=== PATIENT | female | born 1955 | race Caucasian/White ===

== ENCOUNTER 2020-06-23 22:16 | Emergency (ER) | payer MEDICARE, SELFPAY ==
--- NOTE | ~2020-06-23 | XR_ITS ---
EXAMINATION: XR chest 2V EXAM DATE: 06/23/2020 23:11 INDICATION: Dizziness, nausea and vomiting. Age-indeterminate left internal capsular lacunar infarcti on. TECHNIQUE: Frontal and lateral projections of the chest obtained and reviewed. There is no prior christina dy for comparison. FINDINGS: The lungs are clear. There are no pleural effusions. The cardiomediastinal silhouette is within normal limits. There is no pneumothorax suspected. The bones and soft tissues are unremarkab le. IMPRESSION: No acute cardiopulmonary findings. Reviewed, dictated and finalized at location G.
--- NOTE | ~2020-06-23 | CT_ITS ---
EXAMINATION: CT brain wo [facility] EXAM DATE: 06/23/2020 23:03 INDICATION: Dizziness, nausea and vomiting. TECHNIQUE: Spiral CT of the head was performed without contrast. Axial, coronal and sagittal images were reviewed. The dose-length product (DLP) for this examination was 605.33 mGy-cm. The exposure w as tailored according to patient size, and iterative reconstruction (ASIR) was used as additional dos e reduction technique. There is no prior study for comparison. FINDINGS: There is somewhat ill-defined hypodense region in the left internal capsular anterior limb, appearance suspicious for acute or subacute infarction (greater than 6 hours in age). There is no acute intraparenchymal hemorrhage. No evidence of intraparenchymal brain mass lesion. T here is no mass effect or midline shift. The ventricles are normal in size. There are no extra-axia l collections. There are no acute calvarial fractures. The orbits are unremarkable. Soft tissue is unremarkable. The visualized sinuses and mastoid air cells are well aerated. IMPRESSION: Left internal capsular lacunar infarction, could be acute or subacute. Reviewed, dictated and finalized at location G. IMPRESSION: Left internal capsular lacunar infarction, could be acute or subacu te.
[2020-06-23 22:24] VITALS: BP 142/82; PULSE 99; RESP 16; TEMP 36.6; O2SAT 100
--- NOTE | 2020-06-23 22:37 | ECG_ITS ---
Measurements Intervals [place]le Rate: 98 P: 15 MO: 186 QRS: -27 QRSD: 105 T: 21 QT: 379 QTc: 486 Interpretive Statements SINUS RHYTHM ANTERIOR INFARCT, AGE INDETERMINATE CONSIDER INFERIOR INFARCT, AGE INDETERMINATE ABNORMAL ECG Electronically Signed On 06-24-2020 6:39:17 CDT by Cb Jensen D.O.
--- NOTE | 2020-06-23 22:38 | ED.DIZZY ---
HPI - Dizziness General Chief Complaint: Dizziness Stated Complaint: vertigo, n/v Time Seen by Provider: 06/23/20 22:28 Source: patient, family, RN notes reviewed and old records reviewed History of Present Illness HPI Narrative: 65-year-old female presents to emergency department for constant dizziness that began around 7 PM today. Patient states she has had this in the past before, about 10 years ago. Patient states she took Dramamine and Zofran to help with her symptoms. She states moving her head to the right makes it worse. She does report nausea and vomiting. No chest pain or shortness of breath. Related Data Home Medications Medication Instructions Recorded Confirmed ascorbate calcium (vitamin C) 500 500 mg PO DAILY 11/10/19 01/12/20 mg tablet aspirin 81 mg tablet,delayed 81 mg PO DAILY 11/10/19 01/12/20 release coenzyme Q10 100 mg capsule 200 mg PO DAILY cap 11/10/19 01/12/20 cranberry extract 200 mg capsule 200 mg PO DAILY 11/10/19 01/12/20 fluticasone propionate 50 1 spray NASAL DAILY PRN 11/10/19 01/12/20 mcg/actuation nasal spray,suspension omeprazole 40 mg capsule,delayed 40 mg PO DAILY 11/10/19 01/12/20 release lactobacillus combination no.8 3 3,000 mmu cells PO DAILY 12/15/19 01/12/20 billion cell capsule omega-3 fatty acids 1,000 mg 1,000 mg PO DAILY 12/15/19 01/12/20 capsule multivit with 0.5 tablet PO BID tablet 01/12/20 01/12/20 scexembm-chuw-XV-lutein 8 mg iron-400 mcg-300 mcg tablet psyllium seed (sugar) oral powder 0.5 tsp PO DAILY g 01/12/20 01/12/20 Allergies Allergy/AdvReac Type Severity Reaction Status Date / Time nalbuphine Allergy Unknown LOWERS B/P Verified 02/09/18 10:03 codeine Allergy Vomiting Verified 11/10/19 08:19 Sulfa (Sulfonamide AdvReac Unknown MIGRAINES, Verified 02/09/18 10:03 Antibiotics) VOMITING Review of Systems Review of Systems: Narrative: CONSTITUTIONAL: Denies fever, chills, or sweats. Positive Palmer-Hallpike to right side EYES: Denies visual changes, redness, or discharge. ENT: Denies rhinorrhea, congestion, sore throat, or otalgia. CARDIOVASCULAR: Denies chest pain, palpitations, or edema. RESPIRATORY: Denies cough or dyspnea. GASTROINTESTINAL: Reports nausea and vomiting, no diarrhea. GENITOURINARY: Denies dysuria or hematuria. SKIN: Denies rash or itching. MUSCULOSKELETAL: Denies back pain, joint pain, or myalgia. NEUROLOGIC: Denies headache, numbness or weakness. Reports dizziness PSYCHIATRIC: Denies anxiety or depression. All systems reviewed & are unremarkable except as noted in HPI and below (ROS) [facility] Past Medical History Medical History Anxiety GERD (gastroesophageal reflux disease) High cholesterol HTN (hypertension) Surgical History Surgical History H/O section 1984 History of hysterectomy 1992 History of tonsillectomy Family History Family History Mother Heart disease Diabetes mellitus Father Aortic aneurysm Grandparent Uremia Cerebrovascular accident Emphysema of lung Sibling Leukemia Social History Social History Smoking status: Never smoker Alcohol intake: former Exam Narrative: Exam Narrative: Order exam Course Course Emergency Course: 2330 -performed Jennifer maneuver 11:50PM -reevaluated patient, symptoms have improved. Patient very likely has BPPV. Low suspicion for stroke or TIA. Counseled patient to follow-up with her primary care physician within 1 week. Return to emergency department if symptoms persist worsen or other concerns. Can do Jennifer maneuver at home. Vital Signs Vital signs: Vital Signs Temperature 36.6 C 06/23/20 22:24 Pulse Rate 99 06/23/20 22:24 Respiratory Rate 16 06/23
[2020-06-23 22:41] LABS: Basophils Percent Auto 0.4 % (0.2-1.2); Eosinophils Absolute Auto 0.2 K/mm3 (0-0.3); Eosinophils Percent Auto 1.8 % (0-4.4); Hematocrit 45.6 % (37.0-47.0); Hemoglobin 15.6 g/dL (12.0-15.0); Immature Granulocyte Absolute 0.05 K/mm3 (0.00-0.031); Immature Granulocyte Percent A 0.6 % (0-0.5); Lymphocytes Percent Auto 15.3 % (18.3-44.2); Mean Corpuscular HGB Conc 34.2 g/dl (32-36); Mean Corpuscular Hemoglobin 30.1 pg (26-34); Mean Corpuscular Volume 87.9 fl (80-100); Mean Platelet Volume 8.6 fl (7.4-10.4); Monocytes Absolute Auto 0.7 K/mm3 (0.1-0.6); Monocytes Percent Auto 7.9 % (2.6-8.5); Neutrophils Absolute Auto 6.3 K/mm3 (1.3-6.7); Platelet Count Result 214 k/mm3 (150-375); Red Blood Count 5.19 M/mm3 (4.2-5.4); Red Cell Distribution Width 13.5 % (11.5-14.5); White Blood Count 8.5 K/mm3 (4.5-10.0)
[2020-06-23] MEDS: diphenhydrAMINE HCl INJ 50 MG/ML VIAL 25 MG IV PUSH (22:45)
[2020-06-23] MEDS: PROCHLORPERAZINE EDISYLATE 10 MG/2 ML VIAL IV PUSH (22:45)
[2020-06-23 22:52] LABS: Alanine Aminotransferase 39 U/L (4-35); Albumin Level 4.9 g/dL (3.5-5.1); Alkaline Phosphatase 120 U/L (38-126); Anion Gap 7 mmol/L (8-16); Aspartate Amino Transferase 42 U/L (14-36); Bilirubin,Total 0.7 mg/dL (0.2-1.3); Blood Urea Nitrogen 12 mg/dL (7-17); Calcium 10.2 mg/dL (8.4-10.2); Carbon Dioxide 31 mmol/L (22-30); Chloride 99 mmol/L (98-107); Estimated CRCL calculation 76 ml/min; Estimated Glomerular Filt Rate > 60; Glucose 149 mg/dL (65-105); Lipase 20 U/L (23-300); Potassium 3.6 mmol/L (3.4-5.0); Sodium 137 mmol/L (137-145)
[2020-06-23 23:03] LABS: Magnesium 1.9 mg/dL (1.6-2.3)
[2020-06-23 23:16] LABS: Troponin I < 0.012 ng/mL (0.000-0.034)
[2020-06-23] MEDS: ONDANSETRON INJ 4 MG/2 ML VIAL IV PUSH (23:41)
[2020-06-24 00:45] VITALS: BP 146/90; PULSE 105; RESP 16; O2SAT 99
== END 2020-06-24 00:45 | disposition home or self-care (01) ==
PROVIDERS: Emergency Medicine; Emergency Provider Emergency Medicine; PCP Internal Medicine
DX: H81.11 Benign paroxysmal vertigo, right ear (principal); F41.9 Anxiety disorder, unspecified; K21.9 Gastro-esophageal reflux disease without esophagitis; E78.00 Pure hypercholesterolemia, unspecified; I10 Essential (primary) hypertension; R94.31 Abnormal electrocardiogram [ECG] [EKG]; I63.81 Other cerebral infarction due to occlusion or stenosis of small artery
CPT/HCPCS: 36415; 70450; 71046; 80053; 83690; 83735; 84484; 85025; 93005; 96374; 96375; 99284; J0780; J1200; J2405

== ENCOUNTER 2020-08-04 10:33 | Outpatient (CLI) | payer MEDICARE, SELFPAY ==
--- NOTE | ~2020-08-04 | XR_ITS ---
EXAMINATION: XR knee RT min 4V EXAM DATE: 08/04/2020 10:50 INDICATION: No known recent injury provided at this time. Pain of the right knee. TECHNIQUE: Standing frontal projection of both knees, standing Gonzalez projection both knees, sunri se projection both knees, lateral projection right knee. There are no prior studies for comparison. FINDINGS: There is moderate right knee lateral tibiofemoral compartment primary osteoarthritis. Mild osteoarthritis of other compartments. There is a moderate-sized right knee joint effusion. There ar e no acute fractures identified. No radiopaque foreign bodies identified. Only minimal left knee osteoarthritis. IMPRESSION: 1. Moderate right tibiofemoral lateral compartment osteoarthritis. 2. Moderate joint effusion. Reviewed, dictated and finalized at location B.
== END 2020-08-04 10:34 | disposition home or self-care (01) ==
PROVIDERS: PCP Internal Medicine; Visit Provider Nurse Practitioner Family
DX: M25.461 Effusion, right knee (principal); M17.11 Unilateral primary osteoarthritis, right knee
CPT/HCPCS: 73564

== ENCOUNTER → 2020-08-17 12:43 | Outpatient (CLI) | payer MEDICARE, SELFPAY ==
--- NOTE | ~2020-08-17 | MM_ITS ---
EXAMINATION: MM screening yasmin BI w aaron HISTORY: Screening TECHNIQUE: Craniocaudal and mediolateral oblique 3-D tomosynthesis images were obtained and synthetic 2-D images were generated. CAD analysis was submitted and interpreted. COMPARISON: No prior mammogram is available for comparison at this institution. BREAST PARENCHYMAL COMPOSITION: There are scattered areas of fibroglandular density. FINDINGS: There is no evidence of suspicious mass, calcification, or architectural distortion to sugg est malignancy in either breast. There has been no suspicious interval change. IMPRESSION: 1. No mammographic evidence of malignancy. 2. Recommend routine screening mammography in one year. BI-RADS Category 1: Negative Reviewed, dictated and finalized at location A.
== END ==
PROVIDERS: Visit Provider Nurse Practitioner
DX: Z12.31 Encounter for screening mammogram for malignant neoplasm of breast (principal)
CPT/HCPCS: 77063; 77067

== ENCOUNTER → 2021-05-16 12:21 | Outpatient (CLI) | payer MEDICARE, SELFPAY ==
--- NOTE | ~2021-05-16 | DEXA_ITS ---
Bone Density Report Name: FORTUNATO NEGRON Age: 66 Sex: Female Ethnicity: White Date of : 1955 Indication: postmenopausal; screening for osteoporosis; height loss; hysterectomy; Referring Provider: Milvia Rothman Study: Bone densitometry was performed. Exam Date: May 16, 2021 Accession number: [id number] Bone Density: Region BMD T-score Z-score Classification AP Spine (L1-L4) 1.221 1.6 3.5 Normal Femoral Neck (Left) 0.758 -0.8 0.8 Normal Total Hip (Left) 0.925 -0.1 1.2 Normal Femoral Neck (Right) 0.714 -1.2 0.4 Osteopenia Total Hip (Right) 0.866 -0.6 0.7 Normal Total Hip Mean 0.896 -0.4 1.0 Normal World Health Organization criteria for BMD impression classify patients as: Normal (T-score at or above -1.0), Osteopenia (T-score between -1.0 and -2.5), or Osteoporosis (T-score at or below -2.5). 10-year Fracture Risk(1): Major Osteoporotic Fracture 8.1% Hip Fracture 0.7% Reported Risk Factors: [place] (), Neck BMD=0.714, BMI=35.5 (1) FRAX(R) Version 3.08. Fracture probability calculated for an untreated patient. Fracture probability may be lower if the patient has received treatment. Clinical Information Provided by Patient: Has used the following medications: Vitamin D, MTV Has the following medical conditions: Hysterectomy Patient maximum height was 64 Menopause Age: 42 No regular weight bearing exercise Does not regularly consume dairy products Drinks caffeinated beverages Onset of menses at age 11 Number of children 2 Impression: The patient has low bone mass, based on the Right Femoral Neck T-score. The patient has an estimated ten-year risk of hip fracture of 0.7% and an estimated ten-year risk of major fracture of 8.1%, based on the WHO FRAX algorithm. Discussion: BONE DENSITY IS LOW AT ONE OR MORE SKELETAL SITES. This patient's lowest T-score is low at one or more skeletal sites. It meets the World Health Organization's (WHO) criteria for ?low bone mass? (T-score between -1.0 and -2.5). The patient's 10-year risk of fracture as calculated by FRAX is less than the threshold where pharmacological therapy is recommended by the National Osteoporosis Foundation (NOF). However, all treatment decisions require clinical judgment and consideration of individual patient factors, including patient preferences, comorbidities, previous drug use, risk factors not captured in the FRAX model (e.g., frailty, falls, vitamin D deficiency, increased bone turnover, interval significant decline in bone density) and possible under or overestimation of fracture risk by FRAX. The patient should follow a healthful lifestyle (good nutrition with adequate calcium and vitamin D, and appropriate weight-bearing exercise). Follow-Up: Consider repeating this study in 2 to 3 years to reassess
== END ==
PROVIDERS: PCP Internal Medicine; Visit Provider Nurse Practitioner
DX: Z78.0 Asymptomatic menopausal state (principal); M85.851 Other specified disorders of bone density and structure, right thigh
CPT/HCPCS: 77080

== ENCOUNTER 2021-12-21 10:42 | Emergency (ER) | payer MEDICARE, SELFPAY ==
[2021-12-21 10:51] VITALS: BP 147/89; PULSE 80; RESP 16; TEMP 36.7; O2SAT 99
--- NOTE | 2021-12-21 10:53 | ED.SKABFB ---
HPI - Skin/Abscess/Foreign Bdy General Chief complaint: Skin/Abscess/Foreign Body Stated complaint: red spots on legs Time Seen by Provider: 12/21/21 10:53 Source: patient Mode of arrival: ambulatory Limitations: no limitations History of Present Illness HPI narrative: 66-year-old female presented for complaints of rash to bilateral lower legs for over 1 month. She has been seen by an outside urgent care, was prescribed fungal cream with minimal relief. She endorses a history of psoriasis and eczema, she states these lesions have not been itchy, painful, or scaly. She did briefly use additional skin cream but cannot remember the name. She denies any other lesions to her body. Denies changes to lotion, soap, detergent or any other exposures. Related Data Home Medications Medication Instructions Recorded Confirmed ascorbate calcium (vitamin C) 500 500 mg PO DAILY 11/10/19 08/04/20 mg tablet aspirin 81 mg tablet,delayed 81 mg PO DAILY 11/10/19 08/04/20 release (Ecotrin Low Strength) coenzyme Q10 100 mg capsule 200 mg PO DAILY 11/10/19 08/04/20 (CoQ-10) cranberry extract 200 mg capsule 200 mg PO DAILY 11/10/19 08/04/20 fluticasone propionate 50 1 spray intranasal DAILY PRN 11/10/19 08/04/20 mcg/actuation nasal spray,suspension lactobacillus combination no.8 3 3,000 mmu cells PO DAILY 12/15/19 08/04/20 billion cell capsule (Adult Probiotic) omega-3 fatty acids 1,000 mg 1,000 mg PO DAILY 12/15/19 08/04/20 capsule (Fish Oil Concentrate) multivit with 0.5 tablet PO BID 01/12/20 08/04/20 szvfdftd-ogjs-GR-lutein 8 mg iron-400 mcg-300 mcg tablet (Centrum Silver Women) fexofenadine 60 mg tablet (Joy 60 mg PO Q12H 01/11/21 Allergy) Allergies Allergy/AdvReac Type Severity Reaction Status Date / Time nalbuphine Allergy Unknown LOWERS B/P Verified 01/11/21 09:10 codeine Allergy Vomiting Verified 01/11/21 09:10 Sulfa (Sulfonamide AdvReac Unknown MIGRAINES, Verified 01/11/21 09:10 Antibiotics) VOMITING Review of Systems Review of Systems: CONSTITUTIONAL: Denies body aches, fever, chills, or sweats. EYES: Denies visual changes, redness, or discharge. ENT: Denies rhinorrhea, congestion CARDIOVASCULAR: Denies chest pain, palpitations, or edema. RESPIRATORY: Denies cough or dyspnea. GASTROINTESTINAL: Denies abdominal pain, nausea, vomiting, or diarrhea. SKIN: rash to legs MUSCULOSKELETAL: Denies back pain, joint pain, or myalgia. NEUROLOGIC: Denies headache, numbness, tingling, or weakness. [facility] Past Medical History Medical History Anxiety Degenerative joint disease of knee Establishing care with new doctor, encounter for GERD (gastroesophageal reflux disease) High cholesterol HTN (hypertension) Obesity Right knee DJD Right knee pain Screening for breast cancer Screening for endocrine disorder Vitamin D deficiency Surgical History Surgical History H/O section 1984 History of dental surgery Lower right dental implant History of hysterectomy 1992 History of tonsillectomy Family History Family History Mother Heart disease Diabetes mellitus Father Aortic aneurysm Grandparent Uremia Cerebrovascular accident Emphysema of lung Sibling Leukemia Social History Social History Social History: Caffeine-Coffee 2 cups daily Smoking status: Never smoker Alcohol intake: current Alcohol use details: Wine occasionally Comments At time of signature, I have reviewed and agree with nursing past medical, surgical, social and family history unless otherwise noted. Please see nursing chart for further information. There is no relevant family history pertinent to the presenting co
== END 2021-12-21 11:16 | disposition home or self-care (01) ==
PROVIDERS: Emergency Provider Nurse Practitioner Family; PCP Nurse Practitioner
DX: L30.9 Dermatitis, unspecified (principal); K21.9 Gastro-esophageal reflux disease without esophagitis; E78.00 Pure hypercholesterolemia, unspecified; I10 Essential (primary) hypertension; E66.9 Obesity, unspecified; Z68.36 Body mass index [BMI] 36.0-36.9, adult; M17.11 Unilateral primary osteoarthritis, right knee; Z79.82 Long term (current) use of aspirin
CPT/HCPCS: 99213; G0463

== ENCOUNTER → 2021-12-22 12:16 | Outpatient (CLI) | payer MEDICARE, SELFPAY ==
--- NOTE | ~2021-12-22 | MM_ITS ---
EXAMINATION: MM screening yasmin BI w aaron HISTORY: Screening mammogram, family history of breast cancer in her mother. TECHNIQUE: Craniocaudal and mediolateral oblique 3-D tomosynthesis images were obtained and synthetic 2-D images were generated. CAD analysis was submitted and interpreted. COMPARISON: 08/17/2020 BREAST PARENCHYMAL COMPOSITION: There are scattered areas of fibroglandular density. FINDINGS: There is no suspicious mass, calcification, or architectural distortion to suggest malignan cy in either breast. There has been no suspicious interval change. IMPRESSION: 1. No mammographic evidence of malignancy. 2. Recommend routine screening mammography in one year. BI-RADS Category 1: Negative Reviewed, dictated and finalized at location A.
== END ==
PROVIDERS: PCP Nurse Practitioner; Visit Provider Nurse Practitioner
DX: Z12.31 Encounter for screening mammogram for malignant neoplasm of breast (principal)
CPT/HCPCS: 77063; 77067

== ENCOUNTER 2023-01-29 11:32 | Emergency (ER) | payer MEDICARE, SELFPAY ==
[2023-01-29 11:44] VITALS: BP 140/86; PULSE 87; RESP 16; TEMP 36.6; O2SAT 99
[2023-01-29 11:53] VITALS: BP 140/86; PULSE 87; RESP 16; TEMP 36.6; O2SAT 99
--- NOTE | 2023-01-29 12:02 | ED.URI ---
HPI - URI/Sore Throat General Chief Complaint: Upper Respiratory Infection Stated Complaint: DRAINAGE/COUGH/SINUS PAIN Time Seen by Provider: 01/29/23 12:02 Source: patient, RN notes reviewed and old records reviewed Mode of arrival: ambulatory Limitations: no limitations History of Present Illness HPI Narrative: 68 year old female who presents to [facility] care with complaints of over a week duration of tickle in throat, cough, raspy voice, sinus drainage. post nasal drainage, pressure to face and cough. Patient reports that she was initially around a friend who then tested positive for COVID and has tested 4 times since then with last yesterday which were all negative. Patient reports that she has taken Nasocort nasal spray and daily allergy medication. Patient states that for a day or so she thought she was getting better then symptoms increased. MD elicited complaint: cough, sore throat (scratchy throat), rhinorrhea, nasal congestion and sinus pain Onset (ago): day(s) (10 days) Severity: moderate Pain scale (0-10): 4 Able to tolerate fluids by mouth: Yes Treatments prior to arrival: other (Nasocort and allergy pill) Related Data Home Medications Medication Instructions Recorded Confirmed ascorbate calcium (vitamin C) 500 500 mg PO DAILY 11/10/19 01/29/23 mg tablet aspirin 81 mg tablet,delayed 81 mg PO DAILY 11/10/19 01/29/23 release (Ecotrin Low Strength) coenzyme Q10 100 mg capsule 200 mg PO DAILY 11/10/19 01/29/23 (CoQ-10) cranberry extract 200 mg capsule 200 mg PO DAILY 11/10/19 01/29/23 fluticasone propionate 50 1 spray intranasal DAILY 11/10/19 01/29/23 mcg/actuation nasal spray,suspension lactobacillus combination no.8 3 3,000 mmu cells PO DAILY 12/15/19 01/29/23 billion cell capsule (Adult Probiotic) omega-3 fatty acids 1,000 mg 1,000 mg PO DAILY 12/15/19 01/29/23 capsule (Fish Oil Concentrate) tnwpduls-nyeh-zlby 8 mg-folic 400 0.5 tablet PO BID 01/12/20 01/29/23 mcg-K 50 mcg-lutein 300 mcg tablet (Centrum Silver Women) fexofenadine 60 mg tablet (Joy 60 mg PO Q12H 01/11/21 01/29/23 Allergy) cyclosporine 0.05 % eye drops in a 1 drp EACH EYE Q12H 01/12/22 01/29/23 dropperette (Restasis) turmeric root extract 500 mg 500 mg PO DAILY 01/12/22 01/29/23 capsule Allergies Allergy/AdvReac Type Severity Reaction Status Date / Time nalbuphine Allergy Unknown LOWERS B/P Verified 01/29/23 11:38 codeine Allergy Vomiting Verified 01/29/23 11:38 Sulfa (Sulfonamide AdvReac Unknown MIGRAINES, Verified 01/29/23 11:38 Antibiotics) VOMITING Review of Systems Review of Systems: CONSTITUTIONAL: Denies malaise, chills, sweats, or fever. EYES: Denies visual changes, redness, or discharge. ENT: Reports rhinorrhea, congestion, sinus pain, no otalgia and positive for scratchy sore throat. CARDIOVASCULAR: Denies chest pain, palpitations, or edema. RESPIRATORY: Reports cough.? Denies dyspnea. GASTROINTESTINAL: Denies abdominal pain, nausea, vomiting, diarrhea SKIN: Denies rash or itching. MUSCULOSKELETAL: Denies myalgia. NEUROLOGIC: Denies headache. All systems reviewed & are unremarkable except as noted in HPI and below PMFSH Past Medical History Medical History (Updated 01/29/23 @ 12:34 by Jaymie Sheffield NP) Anxiety Degenerative joint disease of knee Establishing care with new doctor, encounter for GERD (gastroesophageal reflux disease) High cholesterol HTN (hypertension) Obesity Right knee DJD Right knee pain Screening for breast cancer Screening for endocrine disorder Vitamin D deficiency Surgical History Surgical History (Updated 01/29/23 @ 12:34 by Jaymie Sheffield NP) H/O section 1984 History of dental surgery Lower right dental implant History of hysterectomy 1992 History of tonsillectomy History of total right knee replacement (TKR) Family History Family History Mot
== END 2023-01-29 12:17 | disposition home or self-care (01) ==
PROVIDERS: Emergency Provider Registered Nurse; PCP Nurse Practitioner
DX: J01.90 Acute sinusitis, unspecified (principal); K21.9 Gastro-esophageal reflux disease without esophagitis; E78.00 Pure hypercholesterolemia, unspecified; I10 Essential (primary) hypertension; E66.9 Obesity, unspecified; Z68.36 Body mass index [BMI] 36.0-36.9, adult; M17.11 Unilateral primary osteoarthritis, right knee; Z96.651 Presence of right artificial knee joint; Z79.82 Long term (current) use of aspirin
CPT/HCPCS: 99213; G0463

== ENCOUNTER 2023-03-05 09:20 | Emergency (ER) | payer MEDICARE, SELFPAY ==
--- NOTE | ~2023-03-05 | XR_ITS ---
EXAMINATION: XR chest 2V DATE: 03/05/2023 10:56 INDICATION: Bronchitis presenting with cough TECHNIQUE: PA and lateral views of the chest were obtained. COMPARISON: Chest radiograph dated 06/23/2020 FINDINGS: The lungs remain clear with no focal airspace opacities, pulmonary edema, pleural effusion or pneumot horax. Heart size is normal. Gaseous distention of the esophagus suggestion of a possible small hiata l hernia. Moderate to severe thoracic spondylosis. IMPRESSION: 1. No acute cardiopulmonary disease. 2. Possible small hiatal hernia. Reviewed, dictated and finalized at location A. IT BREEDER
[2023-03-05 09:56] VITALS: BP 146/86; PULSE 108; RESP 16; TEMP 36.9; O2SAT 95
--- NOTE | 2023-03-05 10:42 | ED.GENADULT ---
HPI - General Adult General Chief complaint: Eye Problems Stated complaint: Manley eye Source: patient Mode of arrival: ambulatory Limitations: no limitations History of Present Illness HPI narrative: Patient presents for evaluation of left eye irritation and redness since yesterday. She has had thick yellow-green drainage from her eye. She reports some blurred vision but denies any other visual disturbance. She wears glasses but not contacts. Her son has similar symptoms but they have not been in contact with one another for more than a week. She states she was treated at the end of December for sinusitis with augmentin. Her symptoms improved but she recently experienced recurrence. She reports thick green/yellow drainage from her nares. She has a cough in the morning but denies any wheezing or SOB. She denies any fever or chills but states that her throat feels raw. She attributes this to postnasal drainage. She tried using chloraseptic spray with some improvement thereafter. She does not smoke. Related Data Home Medications Medication Instructions Recorded Confirmed ascorbate calcium (vitamin C) 500 500 mg PO DAILY 11/10/19 03/05/23 mg tablet aspirin 81 mg tablet,delayed 81 mg PO DAILY 11/10/19 03/05/23 release (Ecotrin Low Strength) coenzyme Q10 100 mg capsule 200 mg PO DAILY 11/10/19 03/05/23 (CoQ-10) cranberry extract 200 mg capsule 200 mg PO DAILY 11/10/19 03/05/23 fluticasone propionate 50 1 spray intranasal DAILY 11/10/19 03/05/23 mcg/actuation nasal spray,suspension lactobacillus combination no.8 3 3,000 mmu cells PO DAILY 12/15/19 03/05/23 billion cell capsule (Adult Probiotic) omega-3 fatty acids 1,000 mg 1,000 mg PO DAILY 12/15/19 03/05/23 capsule (Fish Oil Concentrate) qicnvmah-ifad-ujmc 8 mg-folic 400 0.5 tablet PO BID 01/12/20 03/05/23 mcg-K 50 mcg-lutein 300 mcg tablet (Centrum Silver Women) fexofenadine 60 mg tablet (Joy 60 mg PO Q12H 01/11/21 03/05/23 Allergy) cyclosporine 0.05 % eye drops in a 1 drp EACH EYE Q12H 01/12/22 03/05/23 dropperette (Restasis) Allergies Allergy/AdvReac Type Severity Reaction Status Date / Time nalbuphine Allergy Unknown LOWERS B/P Verified 03/05/23 10:28 codeine Allergy Vomiting Verified 03/05/23 10:28 Sulfa (Sulfonamide AdvReac Unknown MIGRAINES, Verified 03/05/23 10:28 Antibiotics) VOMITING Review of Systems Review of Systems: CONSTITUTIONAL: Denies fever, chills, or sweats. EYES: Reports left eye redness, thick green/yellow drainage and blurred vision. ENT: Reports sensation that her throat is raw . Reports sinus congestion and thick yellow/green drainage present CARDIOVASCULAR: Denies chest pain, palpitations, or edema. RESPIRATORY: Reports cough in the mornings. Denies SOB GASTROINTESTINAL: Denies abdominal pain, nausea, vomiting, or diarrhea. GENITOURINARY: Denies dysuria or hematuria. SKIN: Denies rash or itching. MUSCULOSKELETAL: Denies back pain, joint pain, or myalgia. NEUROLOGIC: Denies headache, numbness, dizziness, or weakness. PSYCHIATRIC: Denies anxiety or depression. [facility] Past Medical History Medical History Anxiety Colon polyps Degenerative joint disease of knee Establishing care with new doctor, encounter for GERD (gastroesophageal reflux disease) Hiatal hernia High cholesterol HTN (hypertension) Obesity Right knee DJD Right knee pain Screening for breast cancer Screening for endocrine disorder Vitamin D deficiency Surgical History Surgical History H/O section 1984 History of dental surgery Lower right dental implant History of hysterectomy 1992 History of tonsillectomy History of total right knee replacement (TKR) Family History Family History Mother Heart disease Diabetes
== END 2023-03-05 11:25 | disposition home or self-care (01) ==
PROVIDERS: Emergency Provider Nurse Practitioner; PCP Internal Medicine
DX: J01.90 Acute sinusitis, unspecified (principal); H10.32 Unspecified acute conjunctivitis, left eye; Z20.822 Contact with and (suspected) exposure to COVID-19; K21.9 Gastro-esophageal reflux disease without esophagitis; E78.00 Pure hypercholesterolemia, unspecified; I10 Essential (primary) hypertension; E66.9 Obesity, unspecified; Z68.36 Body mass index [BMI] 36.0-36.9, adult; M17.11 Unilateral primary osteoarthritis, right knee; Z96.651 Presence of right artificial knee joint; Z79.82 Long term (current) use of aspirin
CPT/HCPCS: 71046; 87426; 87804; 99213; C9803; G0463

== ENCOUNTER → 2023-05-07 12:41 | Outpatient (CLI) | payer MEDICARE, SELFPAY ==
--- NOTE | ~2023-05-07 | MM_ITS ---
EXAMINATION: MM screening yasmin BI w aaron HISTORY: Screening mammogram TECHNIQUE: Craniocaudal and mediolateral oblique 3-D tomosynthesis images were obtained and synthetic 2-D images were generated. CAD analysis was submitted and interpreted. COMPARISON: 12/22/2021, 08/17/2020 bilateral screening mammogram examinations BREAST PARENCHYMAL COMPOSITION: There are scattered areas of fibroglandular density. FINDINGS: There is no evidence of suspicious mass, calcification, or architectural distortion to sugg est malignancy in either breast. There has been no suspicious interval change. IMPRESSION: 1. No mammographic evidence of malignancy. 2. Recommend routine screening mammography in one year. BI-RADS Category 1: Negative Reviewed, dictated and finalized at location A. T SETTER
== END ==
PROVIDERS: PCP Nurse Practitioner; Visit Provider Nurse Practitioner
DX: Z12.31 Encounter for screening mammogram for malignant neoplasm of breast (principal)
CPT/HCPCS: 77063; 77067

== ENCOUNTER 2023-08-27 08:10 | Outpatient (CLI) | payer MEDICARE, SELFPAY ==
--- NOTE | ~2023-08-27 | US_ITS ---
Limited Abdominal Sonogram: Real-time sonographic imaging of the right upper quadrant was performed. Clinical History: Abnormal liver enzymes Findings: The liver appears mildly echogenic, with no evidence of mass lesion or bile duct dilatatio n. Main portal vein demonstrates normal direction of flow. The gallbladder is well distended, and sonali ears normal with no evidence of gallstone or wall thickening. The common bile duct measures 4 mm. Th e visualized pancreas, aorta, and IVC are unremarkable. Impression: Probable diffuse fatty infiltration of liver. Reviewed, dictated and finalized at location M. Impression: Probable diffuse fatty infiltration of liver.
== END 2023-08-27 08:11 ==
LOC: GOSHIMG 08:11
PROVIDERS: PCP Nurse Practitioner; Visit Provider Nurse Practitioner
DX: R74.01 Elevation of levels of liver transaminase levels (principal)
CPT/HCPCS: 76705

== ENCOUNTER 2023-08-27 08:25 | Outpatient (CLI) | payer MEDICARE, SELFPAY ==
[2023-08-27 11:47] LABS: Iron 152 ug/dL (37-170)
[2023-08-27 11:56] LABS: Percent Iron Saturation 41 % (20-50)
[2023-08-27 12:00] LABS: HIV 1/2 Ab P24 Ag Result Negative (Negative)
[2023-08-27 12:01] LABS: Hepatitis B Surface Antigen Negative (Negative)
[2023-08-27 12:18] LABS: Hepatitis C Virus Antibody Negative (Negative)
[2023-08-30 03:23] LABS: Immunoglobulin A 129 mg/dL (70-320); TTG IGA AB <1.0 U/mL
== END 2023-08-27 08:26 | disposition home or self-care (01) ==
LOC: ANHGOSHLAB 08:26
PROVIDERS: PCP Nurse Practitioner; Visit Provider Nurse Practitioner
DX: R74.01 Elevation of levels of liver transaminase levels (principal); F41.9 Anxiety disorder, unspecified; Z11.4 Encounter for screening for human immunodeficiency virus [HIV]
CPT/HCPCS: 36415; 82784; 83540; 83550; 84443; 86364; 86703; 86803; 87340; G0432

== ENCOUNTER 2024-02-18 11:04 | Outpatient (CLI) | payer MEDICARE, SELFPAY ==
[2024-02-18 13:26] LABS: Alanine Aminotransferase 105 U/L (6-35); Albumin Level 4.4 g/dL (3.5-5.1); Alkaline Phosphatase 134 U/L (38-126); Anion Gap 8 mmol/L (4-12); Aspartate Amino Transferase 134 U/L (14-36); Bilirubin,Total 0.6 mg/dL (0.2-1.3); Blood Urea Nitrogen 10 mg/dL (7-17); Calcium 9.3 mg/dL (8.4-10.2); Carbon Dioxide 26 mmol/L (22-30); Chloride 104 mmol/L (98-107); Cholesterol 164 mg/dL (0-200); Estimated Glomerular Filt Rate > 60; Glucose 129 mg/dL (65-110); HDL Direct 44 mg/dL; Sodium 138 mmol/L (137-145); Triglycerides 130 mg/dL (<150)
[2024-02-18 13:38] LABS: LDL Cholesterol Direct 83 mg/dL
[2024-02-18 13:46] LABS: Basophils Percent Auto 0.4 % (0.2-1.2); Eosinophils Absolute Auto 0.3 K/mm3 (0-0.3); Eosinophils Percent Auto 3.9 % (0-4.4); Hematocrit 42.9 % (37.0-47.0); Hemoglobin 14.5 g/dL (12.0-15.0); Immature Granulocyte Absolute 0.04 K/mm3 (0.00-0.031); Immature Granulocyte Percent A 0.5 % (0-0.5); Lymphocytes Absolute Auto 2.98 K/mm3 (0.9-3.2); Lymphocytes Percent Auto 37.4 % (18.3-44.2); Mean Corpuscular HGB Conc 33.8 g/dl (32-36); Mean Corpuscular Hemoglobin 30.9 pg (26-34); Mean Corpuscular Volume 91.3 fl (80-100); Mean Platelet Volume 9.6 fl (7.4-10.4); Monocytes Absolute Auto 0.8 K/mm3 (0.1-0.6); Monocytes Percent Auto 9.9 % (2.6-8.5); Neutrophils Absolute Auto 3.8 K/mm3 (1.3-6.7); Neutrophils Percent Auto 47.9 % (45.5-73.1); Platelet Count Result 220 k/mm3 (150-375); Red Cell Distribution Width 14.2 % (11.5-14.5)
[2024-02-18 14:13] LABS: Hepatitis B Surface Antigen Negative (Negative)
[2024-02-18 14:39] LABS: Vitamin D 25 Hydroxy 73.7 ng/mL
[2024-02-18 15:20] LABS: Hemoglobin A1C 6.3 % (<5.7)
== END 2024-02-18 11:05 | disposition home or self-care (01) ==
LOC: ANHGOSHLAB 11:05
PROVIDERS: PCP Nurse Practitioner; Visit Provider Nurse Practitioner
DX: E55.9 Vitamin D deficiency, unspecified (principal); E78.00 Pure hypercholesterolemia, unspecified; I10 Essential (primary) hypertension; R73.03 Prediabetes; R74.8 Abnormal levels of other serum enzymes
CPT/HCPCS: 36415; 80053; 80061; 82306; 83036; 85025; 87340

== ENCOUNTER 2024-05-21 00:53 | Day surgery (SDC) | payer MEDICARE, SELFPAY ==
[2024-05-06 13:43] VITALS: BMI 36.6
--- OUTSIDE RECORDS SUMMARY | 2024-05-21 00:56 | XMS_ITS | Clinical Summary ---
Author Organization [facility] Address [address] [facility] Attn: Epic Prelude ADT ANANT SANCHEZ [address] Care Team Providers Care Senior Manufacturing Test Engineer Name Role Phone Unavailable Primary Care Provider Unavailabl e Immunizations Immunization Administration Dates Next Due (SHINGRIX)(50 YRS UP) ZOSTER VACCINE RECOMBINANT, 0.5 ML, IM 07/29/2023,04/02/2023 INFLUENZA VACCINE HIGH DOSE QUADRIVALENT 65 YR UP PF IM 12/16/2021 Social History Tobacco Use Types Packs/Day Years Used Date Smoking Tobacco: Never Assessed Comments Unknown Sex and Gender Information Value Date Recorded Sex Assigned at Not on file Legal Sex Female 3:27 PM CDT Gender Identity Not on file Sexual Orientation Not on file Plan of Treatment Health Maintenance Due Date Last Done Comments DTAP/TDAP/TD VACCINES (1 - Tdap) 1973 BREAST CANCER SCREENING 1994 COLORECTAL SCREENING 1999 Colorectal Cancer Screening 1999 FIT-DNA Q 3 years 1999 FIT/FOBT Q 1 year 1999 Flex Sig/CT Colonography Q 5 years 1999 PNEUMOCOCCAL VACCINE 65+ YEA RS (1 of 1 - PCV) 01/27/2004 OSTEOPOROSIS SCREENING 2019 INFLUENZA VACCINE (#1) 2023 12/16/2021 RSV VACCINE (60+ or ) (1 - 1-dose 75+ series) 2029 ZOSTER VACCINE Completed 07/29/2023, 04/02/2023 Insurance RX AETNA Medicare Part D
--- OUTSIDE RECORDS SUMMARY | 2024-05-21 00:56 | XMS_ITS | Patient Health Summary ---
Author Organization [facility] Address [address] [place] [address] Care Team Providers Care Corner Cutter Machine Operator Name Role Phone Unknown, Provider Primary Care Provider Unavaila ble Note from [facility],non-owned Affiliates and Associated Physician Practices is amultiple site organization consisting of ambulatory clinics and hospital sitesin [place], [place], [place]. This disclosure is being madepursuant to the Care Everywhere program and may not contain all information available regarding this patient. Last updated 17.[facility] Allergies * Codeine(Headache,Nausea and/or Vomiting) * Nalbuphine(Other) -High Criticality * Sulfa Drugs(Headache) Medications * Be aware that medications may not be up to date on this document. Alwaysverify current medications with the patient. * atenolol (TENORMIN) 25 MG tablet Take 25 mg by mouth daily. * simvastatin (ZOCOR) 40 MG tablet Take 40 mg by mouth at bedtime. * fexofenadine (KEVIN) 180 MG tablet Take 180 mg by mouth daily. * estrogens, conjugated, (PREMARIN) 0.3 MG tablet Take 0.3 mg by mouth daily. * omeprazole (PRILOSEC) 20 MG capsule(Started 07/21/2010) Take 20 mg by mouth 2 times daily before meals. * fluticasone propionate (FLONASE) 50 MCG/ACT nasal spray(Started 07/21/2010) [place] 2 Sprays into each nostril daily. * DULoxetine HCl (CYMBALTA PO) Active Problems No known active problems Social History Tobacco Use Types Packs/Day Years Used Date Smoking Tobacco: Never Alcohol Use Standard Drinks/Week Comments Yes 0 (1 standard drink = 0.6 oz pur e alcohol) occ Sex and Gender Information Value Date Recorded Sex Assigned at Not on file Gender Identity Not on file Sexual Orientation Not on file Last Filed Vital Signs Vital Sign Reading Time Taken Comments Blood Pressure 122/78 11/06/2020 10:27 AM CDT Pulse 99 11/06/2020 10:27 AM CDT Temperature 36.9 C (98.4 F) 11/06/2020 10:27 AM CDT Respiratory Rate 17 11/06/2020 10:27 AM CDT Oxygen Saturation 100% 07/21/2010 7:18 PM CDT Inhaled Oxygen Concentration - - Weight 83.9 kg (185 lb) 11/06/2020 10:27 AM CDT Height 158.8 cm (5' 2.5 ) 11/06/2020 10:27 AM CD T Body Mass Index 33.3 11/06/2020 10:27 AM CDT Procedures * CT HEAD WO CONTRAST(Performed 07/21/2010) Performed for Headache * BASIC METABOLIC PANEL (CALCIUM IONIZED)(Performed 07/21/2010) * CBC W AUTO DIFFERENTIAL(Performed 07/21/2010) Results * CT HEAD - NON CONTRAST (07/21/2010 6:12 PM CDT) Anatomical Region Laterality Modality Head Computed Tomogra phy 07/21/2010 6:20 PM CDT Impressions 07/21/2010 6:20 PM CDT No acute intracranial abnormality. Narrative 07/21/2010 6:20 PM CDT HISTORY: Hit vertex this morning complains of nausea and vomiting. CT head without contrast. TECHNIQUE: Multiple contiguous axial images of brain were obtained without intravenous contrast. FINDINGS: There is no mass or mass effect. The ventricles are nondilated. The brainstem and posterior fossa are normal. Paranasal sinuses are clear. Bones are unremarkable. There is no finding to suggest acute infarction or intracranial hemorrhage. Procedure Note Jl Reynolds MD - 07/21/2010 HISTORY: Hit vertex this morning complains of nausea and vomiting. CT head without contrast. TECHNIQUE: Multiple contiguous axial images of brain were obtained without intravenous contrast. FINDINGS: There is no mass or mass effect. The ventricles are nondilated. The brainstem and posterior fossa are normal. Paranasal sinuses are clear. Bones are unremarkable. There is no finding to suggest acute infarction or intracranial hemorrhage. IMPRESSION No acute intracranial abnormality. Osmel Monroy MD CT ORDERABLES * (ABNORMAL) BASIC METABOLIC PANEL (CALCIUM IONIZED) (07/21/2010 6:01 PM CDT) Glucose 143(H) 65 - 105 mg/dL [facility] BUN 15 7 - 18 mg/dL [facility] Creatinine 0.8 0.50 - 1.05 mg/dL [facility] Sodium 138 137 - 145 mmol/L [facility] Potassium 3.6 3.6 - 5.0 mmol/L [facility] Chloride 106 98 - 107 mmol/L [facility] CO2 24 22 - 31 mmol/L [facility] Anion Gap 13 [facility] Calcium Ionized 1.10 1.10 - 1.35 mmol/L [facility] eGFR by MDRD >60 SEE BELOW ml/min/1.7 3 m2 [facility] Comment: >60 Normal Chronic Disease <60 Renal Failure <15 BLOOD SPECIMEN SUBMITTED IN HEPARINIZED COLLECTION TUBE / Unknown 07/21/2010 6:01 PM CDT 07/21/2010 6:04 PM CDT Osmel Monroy MD [facility] Organization Address City/State/ZIP Co de Phone Number [facility] [address] [place] [address] * (ABNORMAL) CBC W AUTO DIFFERENTIAL (07/21/2010 4:56 PM CDT) WBC 9.6 4.0 - 11.0 K/CUMM [facility] RBC 4.92 3.80 - 5.30 M/CUMM [facility] Hemoglobin 14.4 11.7 - 15.5 gm/dL [facility] Hematocrit 40.5 36 - 46 % [facility] MCV 82.3 80 - 99 fL [facility] MCH 29.3 26 - 34 pg [facility] MCHC 35.6 32 - 36 gm/dL [facility] RDW 13.2 11.5 - 14.5 % [facility] Platelet Count 254 150 - 400 K/CUMM [facility] Granulocytes % 78.7(H) 43 - 70 % [facility] Lymphocytes % 15.1(L) 22 - 41 % [facility] Monocytes % 6.2 2 - 13 % [facility] Granulocytes Absolute 7.6 1.7 - 7.7 [facility] Lymphocytes Absolute 1.4 1.0 - 3.0 [facility] Monocytes Absolute 0.6 0.2 - 1.0 [facility] BLOOD SPECIMEN / Unknown 07/21/2010 4:56 PM CDT 07/21/2010 6:01 PM CDT Osmel Monroy MD LAB - HEMATOLOGY ORD ERABLES [facility] [address] [place] [address] Care Teams Corner Cutter Machine Operator Relationship Specialty Start Date End Date Unknown, Provider PCP - General 11/05/20
--- OUTSIDE RECORDS SUMMARY | 2024-05-21 00:56 | XMS_ITS | Referral Summary ---
Author Organization [facility] Address [facility] [place] [address] Care Team Providers Care Soda Jerker Name Role Phone Reese Milton DO Primary Care Provider [phone] Allergies Active Allergy Reactions Criticality Noted Date Comments Codeine Headache,Nausea And Vomiting Low 04/04/2012 Nalbuphine Other (See comments) High 04/04/2012 hypotension Sulfa (Sulfonamide Antibiotics) Headache,Vomiting Low 04/04/2012 Medications atorvastatin (LIPITOR) 10 mg tabletIndicati ons:hyperlipid emia Take 1 tablet (10 mg total) by mouth nightly [address] (CYMBALTA) 20 mg capsule Take 1 capsule (20 mg total) by mouth daily 2 Active lisinopriL (PRINIVIL,ZEST RIL) 10 mg tablet Take 1 tablet (10 mg total) by mouth nightly 2 Active omeprazole (PriLOSEC) 40 mg capsule Take 1 capsule (40 mg total) by mouth nightly 2 Active clobetasoL (TEMOVATE) 0.05 % ointment Apply 1 application topically 2 (two) times a day Rash circular on bilateral legs left greater then rt saw incoming freight clerk said psoriasa and eczyma 2 Active fexofenadine (KEVIN) 180 mg tablet Take 1 tablet (180 mg total) by mouth tank builder supervisor before breakfast Active cholecalcifero l, vitamin D3, 1,000 unit tablet,chewabl e Take 1 tablet/chew tab by mouth daily with dinner Active aspirin 81 mg enteric coated tabletIndicati ons:prevention of thrombosis Take 1 tablet (81 mg total) by mouth 2 (two) times a day 60 tablet 2 Active acetaminophen (TYLENOL) 500 mg tablet Take 2 tablets (1,000 mg total) by mouth every 8 (eight) hours 90 tablet 1 2 Active meloxicam (MOBIC) 7.5 mg tablet Take 1 tablet (7.5 mg total) by mouth daily 30 tablet 2 Active senna-docusate (Senna-S) 8.6-50 mg Take 2 tablets by mouth 2 (two) times a day 80 tablet 1 2 Active traMADoL (ULTRAM) 50 mg tablet Take 1 tablet (50 mg total) by mouth every 6 (six) hours as needed for pain for up to 7 days 28 tablet 2 Active levoFLOXacin (LEVAQUIN) 500 mg tablet TAKE 1 TABLET BY MOUTH DAILY FOR 7 DAYS 2 Active amoxicillin 500 mg tablet/capsule Indications:Pr ophylaxis, Medical Take 1 tablet/capsule (500 mg total) by mouth as directed TAKE 4 PILL 1 HOUR BEFORE DENTAL APPOINTMENT. 4 tablet/capsu le 3 3 Active amoxicillin-cl avulanate (AUGMENTIN) 875-125 mg per tablet Take 1 tablet by mouth every 12 (twelve) hours 3 Active cycloSPORINE (RESTASIS) 0.05 % ophthalmic emulsion 1 drop 2 (two) times a day 3 Active Active Problems Problem Noted Date Diagnosed Date Primary osteoarthritis of right knee 11/22/2021 Overview (11/22/2021): Added automatically from request for surgery [id number] Elevated vitamin B12 level 09/04/2019 Pain in right knee 02/06/2017 Chronic GERD 11/08/2015 Hypertension goal BP (blood pressure) < 140/90 0 11/08/2015 Mixed hyperlipidemia 11/08/2015 Sprain of right knee 10/12/2014 Immunizations Immunization Administration Dates Next Due Influenza, Quad, Adjuvantate d, Intramuscular 12/23/2020 Influenza, Quadrivalent, Spl it, Preservative Free, Intramuscular 01/01/2020,01/15/2018,12/23/2015,01/18,01/09/2013,03/28/2009,02/03/2008 ,02/13/2007,02/14/2006,2005,01/31 Influenza, Trivalent, High D ose, Split, Preservative Free, Intramuscular 01/13/2019 Influenza, Trivalent, IM (MDV) 01/06/2017 Influenza, Trivalent, Preser vative Free, Intramuscular 12/22/2015,11/30/2014,01/09/2013,03/28,02/03/2008,02/13/2007,02/14/2006 ,2005,02/27/2001 Influenza, Unspecified 01/30/2022 Pneumococcal Conjugate PCV 13 02/05/2019 Pneumococcal Polysaccharide PPV23 02/10/2020, TD Preservative Free 02/24/2008,10/26/1985 ZOSTER LIVE 01/30/2016 ZOSTER Recombinant 10/18/2017,08/08/2017 Social History Tobacco Use Types Packs/Day Years Used Date Smoking Tobacco: Never Smokeless Tobacco: Never Tobacco Cessation:Counseling Given: Not Answered AUDIT-C Answer Date Recorded Q1: How often do you have a drink containing alc ohol? 2-3 times a week 01/29/2022 Q2: How many drinks containi ng alcohol do you have on a typical day when you are drinking? 1 or 2 01/29/2022 Q3: How often do you have si x or more drinks on one occasion? Never 01/29/2022 Comments No Sex and Gender Information Value Date Recorded Sex Assigned at Not on file Legal Sex Female 9:44 AM WEB APPLICATIONS ARCHITECT Gender Identity Not on file Sexual Orientation Not on file Last Filed Vital Signs Vital Sign Reading Time Taken Comments Blood Pressure 132/70 03/08/2022 12:28 PM WEB APPLICATIONS ARCHITECT Pulse 76 03/08/2022 12:28 PM WEB APPLICATIONS ARCHITECT Temperature 35.7 C (96.2 F) 03/08/2022 12:28 PM WEB APPLICATIONS ARCHITECT Respiratory Rate 18 03/08/2022 12:28 PM WEB APPLICATIONS ARCHITECT Oxygen Saturation 98% 03/08/2022 12:28 PM WEB APPLICATIONS ARCHITECT Inhaled Oxygen Concentration - - Weight 88.9 kg (196 lb) 02/22/2022 4:00 PM WEB APPLICATIONS ARCHITECT Height 157.5 cm (5' 2 ) 02/22/2022 4:00 PM WEB APPLICATIONS ARCHITECT Body Mass Index 35.85 02/22/2022 4:00 PM WEB APPLICATIONS ARCHITECT Plan of Treatment Not on file Medical Devices Implanted Type Area Diaper Machine Tender Device Identifier Shelf Expiration Date Model / Serial / Lot [employer] Smartset Medium Viscosity Cement 40gm Bone Gentamicin [id number] - Sna - [id number] Implanted:Qty: 1 on 02/20/2022 by Perfecto Alexis MD at [facility] Bone Cement Right: Knee [employer] 05/30/2023 [id number] / NA / [id number] Description:Implant times ap proximate [employer] Smartset Medium Viscosity Cement 40gm Bone Sterile 3122-040 - Sna - [id number] Implanted:Qty: 1 on 02/20/2022 by Perfecto Alexis MD at [facility] Bone Cement Right: Knee [employer] 05/30/2023 3122-040 / NA / [id number] [employer] Attune Cemented Cruciate Retaining Knee Right 5 Narrow Component [id number] - Sna - [id number] Implanted:Qty: 1 on 02/20/2022 by Perfecto Alexis MD at [facility] Other - see comments Right: Knee [employer] [id number] 06/30/2031 [id number] / NA / [id number] Description:Implant pause pe rformed with each implant [employer] Insert Tibial Knee Fixed Rm Posterior Stabilized Attune 12mm Size 5 Polyethylene [id number] - Sna - [id number] Implanted:Qty: 1 on 02/20/2022 by Perfecto Alexis MD at [facility] Other - see comments Right: Knee [employer] [id number] 12/29/2028 [id number] / NA / [id number] Description:[id number] 621.00 [employer] Attune S+ Cement Fix Bearing Knee 5 Baseplate Tibial [id number] - Sna - [id number] Implanted:Qty: 1 on 02/20/2022 by Perfecto Alexis MD at [facility] Other - see comments Right: Knee [employer] [id number] 11/30/2031 [id number] / NA / [id number] [place] [address] [place] [id number] MEDICARE MEDICARE SOLUTIONS [facility] MEDICARE Advance Directives For more information, please contact: [phone] Documents on File Type Date Recorded Patient Outpatient Services Director Expl anation Power of Communications Superintendent 02/20/2022 12:44 PM * Full Code (Latest Code Status on File) Date Activated Date Inactivated Comments 02/20/2022 3:47 PM 02/21/2022 1:05 PM Care Teams Soda Jerker Relationship Specialty Start Date End Date Reese Milton DO PCP - General Internal Medicine 04/15/21
--- OUTSIDE RECORDS SUMMARY | 2024-05-21 00:56 | XMS_ITS | Clinical Summary ---
Author Organization [facility] Address [facility] [place] [address] Care Team Providers Care Laser Specialist Name Role Phone Reese Milton DO Primary Care Provider [phone]- [phone] Allergies Active Allergy Reactions Criticality Noted Date [...] bilateral legs left greater then rt saw painter and decorator apprentice said psoriasa and eczyma 2 Active fexofenadine (KEVIN) 180 mg tablet Take 1 tablet (180 mg total) by mouth [employer] [facility] before breakfast Active cholecalcifero l, vitamin D3, [...] (11/22/2021): Added automatically from request for surgery [id number] Elevated vitamin B12 level 09/04/2019 Pain in [...] 02/24/2008,10/26/1985 ZOSTER LIVE 01/30/2016 ZOSTER Recombinant 10/18/2017,08/08/2017 Surgical History Surgery Date Site/Laterality Comments SECTION TONSILLECTOMY JOINT REPLACEMENT KNEE SURGERY Medical History Medical History Date Comments Hypertension Motion sickness PONV (postoperative nausea and vomiting) GERD (gastroesophageal reflux disease) Family History Medical History Relation Name Comments Anesthesia problems Neg Hx Social History Tobacco Use Types Packs/Day Years [...] on file Legal Sex Female 9:44 AM REPORTING SPECIALIST Gender Identity Not on file Sexual Orientation Not on file Obstetrics History Para Term AB IAB SAB Ectopic Multiple Livin g Live Births 2 2 2 Date Outcome GA Total Labor Labor/2nd/3rd Weight Sex Type Anes PTL Amirah A1 A5 Name Clin Term Term Last Filed Vital Signs Vital Sign Reading Time Taken Comments Blood Pressure 132/70 03/08/2022 12:28 PM REPORTING SPECIALIST Pulse 76 03/08/2022 12:28 PM REPORTING SPECIALIST Temperature 35.7 C (96.2 F) 03/08/2022 12:28 PM REPORTING SPECIALIST Respiratory Rate 18 03/08/2022 12:28 PM REPORTING SPECIALIST Oxygen Saturation 98% 03/08/2022 12:28 PM REPORTING SPECIALIST Inhaled Oxygen Concentration - - Weight 88.9 kg (196 lb) 02/22/2022 4:00 PM REPORTING SPECIALIST Height 157.5 cm (5' 2 ) 02/22/2022 4:00 PM REPORTING SPECIALIST Body Mass Index 35.85 02/22/2022 4:00 PM REPORTING SPECIALIST Plan of Treatment Health Maintenance Due Date Last Done Comments Breast Cancer Screening-Mammogram 1954 Colon Cancer Screening-Colonoscopy 1954 Depression Screening 1954 Hepatitis C Screening 1954 Osteoporosis Screening-Bone Density Scan 1954 Hepatitis B Screening 01/27/1972 DTaP/Tdap/Td Vaccine (1 - Tdap) 02/25/2008 8, 10/26/1985 Well Visit 65+ 2019 Fall Risk Assessment 02/21/2023 02/21/2022 Covid-19 Vaccine (2023-05 5 season) 2023 12/23/2020, 06/18/2020, 05/26/2020 Zoster Vaccine Completed 10/18/2017, 07/30, 01/30/2016 Pneumococcal vaccine 65+ Completed 020, 02/05/2019, 01/27/2008 Influenza Vaccine Completed 12/28/2023, , 12/23/2020, Additional history exists Medical Devices Implanted Type Area Aluminum Siding Installer Device Identifier Shelf Expiration Date Model / Serial / Lot [employer] Smartset Medium Viscosity Cement 40gm Bone Gentamicin [id number] - Sna - [id number] Implanted:Qty: 1 on 02/20/2022 by Perfecto Alexis MD at [facility] Bone Cement Right: Knee [employer] 05/30/2023 [id number] / NA / [id number] Description:Implant times ap proximate [employer] Smartset Medium Viscosity Cement 40gm Bone Sterile 3122-040 - Sna - [id number] Implanted:Qty: 1 on 02/20/2022 by Perfecto Alexis MD at [facility] Bone Cement Right: Knee [employer] 05/30/2023 3122-040 / NA / [id number] [employer] Attune Cemented Cruciate Retaining Knee Right 5 Narrow Component [id number] - Sna - [id number] Implanted:Qty: 1 on 02/20/2022 by Perfecto Alexis MD at [facility] Other - see comments Right: Knee [employer] [id number] 06/30/2031 [id number] / NA / [id number] Description:Implant pause pe rformed with each implant [employer] Insert Tibial Knee Fixed Rm Posterior Stabilized Attune 12mm Size 5 Polyethylene [id number] - Sna - [id number] Implanted:Qty: 1 on 02/20/2022 by Perfecto Alexis MD at [facility] Other - see comments Right: Knee [employer] [id number] 12/29/2028 [id number] / NA / [id number] Description:[id number] 621.00 [employer] Attune S+ Cement Fix Bearing Knee 5 Baseplate Tibial [id number] - Sna - [id number] Implanted:Qty: 1 on 02/20/2022 by Perfecto Alexis MD at [facility] Other - see comments Right: Knee [employer] [id number] 11/30/2031 [id number] / NA / [id number] Insurance MEDICARE SOLUTIONS [facility] MEDICARE Address: [address] [address] [place] [address] [employer] MEDICARE A[employer] MEDICARE Advance Directives For more information, please contact: [phone] Documents on File Type Date Recorded Patient Pourer Crane Ladle Expl anation Power of Customer Expert 02/20/2022 12:44 PM * Full Code (Latest Code Status on File) Date Activated Date Inactivated Comments 02/20/2022 3:47 PM 02/21/2022 1:05 PM Care Teams Laser Specialist Relationship Specialty Start Date End Date Reese Milton DO PCP - General Internal Medicine 04/15/21
--- OUTSIDE RECORDS SUMMARY | 2024-05-21 00:56 | XMS_ITS | Clinical Summary ---
Author Organization [facility] [employer] Address [address] [place] [address] Care Team Providers Care Mechanical Engineer Name Role Phone Unknown, Provider Primary Care Provider Unavaila ble Source Comments [facility] [employer] [facility],non-owned Affiliates and Associated Physician Practices is amultiple site organization consisting of ambulatory clinics and hospital sitesin [place], [place], [place] and [place]. This disclosure is being madepursuant to the Care Everywhere program and may not contain all information available regarding this patient. Last updated 17.[facility] Allergies Active Allergy Reactions Criticality Noted Date Comments Codeine Headache,Nausea and/or Vomiting 06/2012 Nalbuphine Other High 04/04/2012 Sulfa Drugs Headache 04/04/2012 Medications * Be aware that medications may not be up to date on this document. Alwaysverify current medications with the patient. Medication Sig Dispensed Refills Start Date End Date Status atenolol (TENORMIN) 25 MG tablet Take 25 mg by mouth daily. Active simvastatin (ZOCOR) 40 MG tablet Take 40 mg by mouth at bedtime. Active fexofenadine (KEVIN) 180 MG tablet Take 180 mg by mouth daily. Active estrogens, conjugated, (PREMARIN) 0.3 MG tablet Take 0.3 mg by mouth daily. Active omeprazole (PRILOSEC) 20 MG capsule Take 20 mg by mouth 2 times daily before meals. 07/21/2010 Active fluticasone propionate (FLONASE) 50 MCG/ACT nasal spray [place] 2 Sprays into each nostril daily. 16 g 0 07/21/2010 Active DULoxetine HCl (CYMBALTA PO) Active Active Problems No known active problems Social [...] Mass Index 33.3 11/06/2020 10:27 AM CDT Plan of Treatment Health Maintenance Due Date Last Done Comments BONE DENSITY TESTING 1954 COLOGUARD (AGES 45-75) - COLON CA SCREENING 1954 COLON MONITORING 1954 COLONOSCOPY - COLON CA SCREENING 1954 CT COLONOGRAPHY - COLON CA SCREENING 1954 Colorectal Cancer Screening 1954 FIT - COLON CA SCREENING 1954 FLEX SIG - COLON CA SCREENING 1954 MAMMOGRAM 1954 HEPATITIS C SCREENING 01/22/1972 DTAP/TDAP/TD VACCINES (1 - Tdap) 1973 PNEUMOCOCCAL VACCINE 50+ (1 of 1 - PCV) 01/27/2004 ZOSTER VACCINE (1 of 2) 01/27/2004 COVID-19 VACCINE (3 - season) 2023 06/18/2020, 05/26/2020 INFLUENZA VACCINE (#1) 2023 0, 01/13/2019, 01/15/2018, Additional history exists DEPRESSION SCREENING 04/01/2024 MEDICARE AWV CALENDAR YEAR 2024 Respiratory Syncytial Virus (RSV) Vaccine Pt: or over 60 yrs (1 - 1-dose 75+ series) 2029 HEPATITIS B VACCINE Aged Out No longe r eligible based on patient's age to complete this topic HIB VACCINE Aged Out No longer eligi ble based on patient's age to complete this topic HPV VACCINE Aged Out No longer eligi ble based on patient's age to complete this topic MENINGOCOCCAL (Group B) VACCINE Aged Out No longer eligible based on patient's age to complete this topic MENINGOCOCCAL VACCINE Aged Out No noelle ty eligible based on patient's age to complete this topic Care Teams Mechanical Engineer Relationship Specialty Start Date End Date Unknown, Provider PCP - General 11/05/20
--- OUTSIDE RECORDS SUMMARY | 2024-05-21 00:56 | XMS_ITS | Referral Summary ---
Author Organization [facility] Address [address] [place] [address] Care Team Providers Care Muleser Name Role Phone Unknown, Provider Primary Care Provider Unavaila ble Source Comments [facility],non-owned Affiliates and Associated Physician Practices is amultiple site organization consisting of ambulatory clinics and hospital sitesin [place], [place], [place] and [place]. This disclosure is being madepursuant to the Care Everywhere program and may not contain all information available regarding this patient. Last updated 17.[facility] Allergies Active Allergy Reactions Criticality Noted Date [...] fluticasone propionate (FLONASE) 50 MCG/ACT nasal spray [place] 2 Sprays into each nostril daily. 16 [...] 11/06/2020 10:27 AM CDT Plan of Treatment Not on file Care Teams Muleser Relationship Specialty Start Date End Date Unknown, Provider PCP - General 11/05/20
[2024-05-21 08:12] VITALS: BP 146/99; PULSE 105; RESP 18; TEMP 36.3; O2SAT 98
[2024-05-21] MEDS: LACTATED RINGERS 1,000 ML 150 ML IV CONT (08:20)
--- NOTE | 2024-05-21 08:42 | P.PNAN_ITS ---
Anes - Initial Pre Proc Eval Procedure: Operation Date: 05/21/24 09:00 Proposed Procedures p Esophagogastroduodenoscopy&Screen Colon - Obdulio Parr MD Date/Time: 05/21/24 08:42 Surgeon: Obdulio Parr MD Pre Op Diagnosis: screening colon, GERD Patient Data Age: 69 Gender: F Height: 1.57 m Weight: 90.2 kg Last Vital Signs Temp 97.3 F L 05/21/24 08:12 Pulse 105 H 05/21/24 08:12 Resp 18 05/21/24 08:12 BP 146/99 H 05/21/24 08:12 Pulse Ox 98 05/21/24 08:12 O2 Del Method Room Air 05/21/24 08:12 Allergies Allergy/AdvReac Type Severity Reaction Status Date / Time nalbuphine Allergy Unknown LOWERS B/P Verified 05/21/24 08:09 midazolam (From Versed) AdvReac Severe Vomiting Verified 05/21/24 08:09 Sulfa (Sulfonamide AdvReac Unknown MIGRAINES, Verified 05/21/24 08:09 Antibiotics) VOMITING codeine AdvReac Vomiting Verified 05/21/24 08:09 Home Medications ?Medication ?Instructions ?Recorded ?Confirmed ?Type aspirin 81 mg tablet,delayed 81 mg PO DAILY 11/10/19 05/21/24 History release (Ecotrin Low Strength) coenzyme Q10 100 mg capsule 200 mg PO DAILY 11/10/19 05/21/24 History (CoQ-10) cranberry extract 200 mg capsule 200 mg PO DAILY 11/10/19 05/21/24 History lactobacillus combination no.8 3 3,000 mmu cells PO DAILY 12/15/19 05/21/24 History billion cell capsule (Adult Probiotic) omega-3 fatty acids 1,000 mg 1,000 mg PO DAILY 12/15/19 05/21/24 History capsule (Fish Oil Concentrate) cyclosporine 0.05 % eye drops in a 1 drp EACH EYE Q12H 01/12/22 05/21/24 History dropperette (Restasis) duloxetine 20 mg capsule,delayed 20 mg PO DAILY #90 caps 02/18/24 05/21/24 Rx release (Cymbalta) clobetasol 0.05 % topical cream 1 applic topical DAILY 03/02/24 05/21/24 History fexofenadine 60 mg tablet (Joy 60 mg PO DAILY 03/02/24 05/21/24 History Allergy) mtvxpddq-hodk-qgtf 8 mg-folic 400 0.5 tablet PO DAILY 03/02/24 05/21/24 History mcg-K 50 mcg-lutein 300 mcg tablet (Centrum Silver Women) phentermine 37.5 mg tablet 37.5 mg PO DAILY #90 tabs 03/02/24 05/21/24 Rx atorvastatin 10 mg tablet See Rx Instructions .Route 03/09/24 05/21/24 Rx .COMPLEX #90 tabs lisinopril 10 mg tablet See Rx Instructions .Route 03/09/24 05/21/24 Rx .COMPLEX #90 tabs omeprazole 40 mg capsule,delayed See Rx Instructions .Route 03/09/24 05/21/24 Rx release .COMPLEX #90 caps Patient hx anesthesia problems: post op nausea/vomiting Family hx anesthesia problems: none Results Review: All pre-operative results and documents have been reviewed as part of the pre- operative evaluation. [facility] Past Medical History Medical History Hiatal hernia Colon polyps Obesity Degenerative joint disease of knee Right knee DJD Right knee pain Vitamin D deficiency Screening for endocrine disorder Screening for breast cancer Establishing care with new doctor, encounter for High cholesterol HTN (hypertension) GERD (gastroesophageal reflux disease) Anxiety Surgical History Surgical History History of total right knee replacement (TKR) History of dental surgery Lower right dental implant History of hysterectomy 1992 H/O section 1984 History of tonsillectomy Family History Family History Mother Heart disease Diabetes mellitus Father Aortic aneurysm Grandparent Uremia Cerebrovascular accident Emphysema of lung Sibling Leukemia Social History Social History Social History: Caffeine-Coffee 2 cups daily Smoking status: Never smoker Alcohol intake: current Drinks per week: 2 Alcohol use details: Occasionally Substance use: never Substance use type: does not use Lack of Transportation: No Lack of Food: Never True Current Housing: I Have Housing Concerned About Future Housing: No Difficulty Paying Gas/Electric Bills: No Difficulty Paying for Meds: No Currently Unemployed: No Education: Master's Degree or Higher Difficulty w/ Childcare or Family Care: No Living arrangements: alone Spiritual care concerns: No Anes - Eval Final PreProcedure Day of Procedure 05/21/24 08:42 Patient weight: obese Lungs: normal air movement Airway: Mallampati scale class II Neurological: alert and oriented Last oral intake: >/= 8 hours ASA classification: III Emergent: no Anesthetic plan: proceed Anesthesia type and monitoring: general GIVS and standard monitoring Results Review: All pre-operative results and documents have been reviewed as part of the pre- operative evaluation. HTN, hyperlipidemia, suspect YINA. Informed Consent: The patient's anesthetic plan and its attendant risks and benefits were discussed with the patient/family/POA. Questions were solicited and answers provided to the satisfaction of the patient/family/POA.
--- NOTE | 2024-05-21 08:48 | PM.IMHP ---
H&P: HPI History of Present Illness Date/Time: 05/21/24 08:48 Chief Complaint: History of colon polyps-GERD Narrative: the patient does suffer from heartburn for several years. She has a diagnosis of hiatal hernia and is currently partially control with omeprazole which she takes once a day. In addition she had colonic polyps in the past, and is due for her surveillance colonoscopy. Review of Systems Review of Systems: All systems reviewed & are unremarkable except as noted in HPI and below PMFSH Past Medical History Medical History Hiatal hernia Colon polyps Obesity Degenerative joint disease of knee Right knee DJD Right knee pain Vitamin D deficiency Screening for endocrine disorder Screening for breast cancer Establishing care with new doctor, encounter for High cholesterol HTN (hypertension) GERD (gastroesophageal reflux disease) Anxiety Surgical History Surgical History History of total right knee replacement (TKR) History of dental surgery Lower right dental implant History of hysterectomy 1992 H/O section 1984 History of tonsillectomy Family History Family History Mother Heart disease Diabetes mellitus Father Aortic aneurysm Grandparent Uremia Cerebrovascular accident Emphysema of lung Sibling Leukemia Social History Social History Social History: Caffeine-Coffee 2 cups daily Smoking status: Never smoker Alcohol intake: current Drinks per week: 2 Alcohol use details: Occasionally Substance use: never Substance use type: does not use Lack of Transportation: No Lack of Food: Never True Current Housing: I Have Housing Concerned About Future Housing: No Difficulty Paying Gas/Electric Bills: No Difficulty Paying for Meds: No Currently Unemployed: No Education: Master's Degree or Higher Difficulty w/ Childcare or Family Care: No Living arrangements: alone Spiritual care concerns: No Meds Home Medications and Allergies Home Medications ?Medication ?Instructions ?Recorded ?Confirmed ?Type aspirin 81 mg tablet,delayed 81 mg PO DAILY 11/10/19 05/21/24 History release (Ecotrin Low Strength) coenzyme Q10 100 mg capsule 200 mg PO DAILY 11/10/19 05/21/24 History (CoQ-10) cranberry extract 200 mg capsule 200 mg PO DAILY 11/10/19 05/21/24 History lactobacillus combination no.8 3 3,000 mmu cells PO DAILY 12/15/19 05/21/24 History billion cell capsule (Adult Probiotic) omega-3 fatty acids 1,000 mg 1,000 mg PO DAILY 12/15/19 05/21/24 History capsule (Fish Oil Concentrate) cyclosporine 0.05 % eye drops in a 1 drp EACH EYE Q12H 01/12/22 05/21/24 History dropperette (Restasis) duloxetine 20 mg capsule,delayed 20 mg PO DAILY #90 caps 02/18/24 05/21/24 Rx release (Cymbalta) clobetasol 0.05 % topical cream 1 applic topical DAILY 03/02/24 05/21/24 History fexofenadine 60 mg tablet (Joy 60 mg PO DAILY 03/02/24 05/21/24 History Allergy) qxcfcptg-ghfo-kjrj 8 mg-folic 400 0.5 tablet PO DAILY 03/02/24 05/21/24 History mcg-K 50 mcg-lutein 300 mcg tablet (Centrum Silver Women) phentermine 37.5 mg tablet 37.5 mg PO DAILY #90 tabs 03/02/24 05/21/24 Rx atorvastatin 10 mg tablet See Rx Instructions .Route 03/09/24 05/21/24 Rx .COMPLEX #90 tabs lisinopril 10 mg tablet See Rx Instructions .Route 03/09/24 05/21/24 Rx .COMPLEX #90 tabs omeprazole 40 mg capsule,delayed See Rx Instructions .Route 03/09/24 05/21/24 Rx release .COMPLEX #90 caps Allergies Allergy/AdvReac Type Severity Reaction Status Date / Time nalbuphine Allergy Unknown LOWERS B/P Verified 05/21/24 08:09 midazolam (From Versed) AdvReac Severe Vomiting Verified 05/21/24 08:09 Sulfa (Sulfonamide AdvReac Unknown MIGRAINES, Verified 05/21/24 08:09 Antibiotics) VOMITING codeine AdvReac Vomiting Verified 05/21/24 08:09 Vital Signs Vital Signs - 24 hr 05/21/24 08:12 Temperature 97.3 F L Pulse Rate 105 H Respiratory Rate 18 Blood Pressure 146/99 H Pulse Oximetry 98 Oxygen Delivery Room Air Exam Const: General: cooperative and healthy appearing Resp: Effort & Inspection: normal respiratory effort and able to speak in complete sentences Auscultation: clear to auscultation bilaterally Cardio: Rate: regular rate Rhythm: regular rhythm GI: Inspection: normal to inspection GI Palp: No No hepatosplenomegaly present Auscultation: normal bowel sounds Rectal Exam: deferred Skin: General skin exam: normal color Psych: Appearance: grossly normal Mental Status: mental status grossly normal Assessment and Plan Assessment and plan (1) GERD (gastroesophageal reflux disease): Code(s): K21.9 - Gastro-esophageal reflux disease without esophagitis Status: Acute Assessment and Plan: The patient is deemed a good candidate for the procedures. Consent signed. Will proceed. (2) Screening for colon cancer: Code(s): Z12.11 - Encounter for screening for malignant neoplasm of colon Status: Acute
--- NOTE | 2024-05-21 09:17 | SUR.OPER ---
egd ended at 911 and colonoscopy begun at 917
[2024-05-21 09:38] VITALS: BP 117/66; PULSE 86; RESP 19; O2SAT 100
[2024-05-21 09:48] VITALS: BP 130/81; PULSE 85; RESP 21; O2SAT 100
[2024-05-21 09:58] VITALS: BP 141/87; PULSE 80; RESP 14; O2SAT 99
== END 2024-05-21 10:08 | disposition home or self-care (01) ==
PROVIDERS: PCP Nurse Practitioner; Referring Provider Nurse Practitioner; Visit Provider Internal Medicine Gastroenterology
PROC: 0DJ08ZZ Inspection of Upper Intestinal Tract, Via Natural or Artificial Opening Endoscopic (ICD-10-PCS; CPT 45378; principal; 2024-05-21 09:00)
DX: Z12.11 Encounter for screening for malignant neoplasm of colon (principal); K64.8 Other hemorrhoids; Z86.0100 Personal history of colon polyps, unspecified; K44.9 Diaphragmatic hernia without obstruction or gangrene; K29.30 Chronic superficial gastritis without bleeding; K21.9 Gastro-esophageal reflux disease without esophagitis; E66.9 Obesity, unspecified; Z68.36 Body mass index [BMI] 36.0-36.9, adult
CPT/HCPCS: 43239; G0105; 88305; J2704; J7120

== ENCOUNTER 2024-07-27 14:35 | Outpatient (CLI) | payer MEDICARE, SELFPAY ==
--- NOTE | ~2024-07-27 | MM_ITS ---
EXAMINATION: MM screening yasmin BI w aaron HISTORY: Screening mammogram, family history of breast cancer in her mother and sister. TECHNIQUE: Craniocaudal and mediolateral oblique 3-D tomosynthesis images were obtained and synthetic 2-D images were generated. CAD analysis was submitted and interpreted. COMPARISON: 05/07/2023, 12/22/2021, 08/17/2020 BREAST PARENCHYMAL COMPOSITION:Not Dense. There are scattered areas of fibroglandular density. FINDINGS: No suspicious mass, calcification, or architectural distortion are identified in either jonah ast to suggest malignancy. There has been no suspicious interval change. IMPRESSION: No mammographic evidence of malignancy. Recommend routine screening mammography in one year. BI-RADS Category 1: Negative Reviewed, dictated and finalized at location .
== END 2024-07-27 14:36 | disposition home or self-care (01) ==
LOC: MICIMG 14:37
PROVIDERS: PCP Nurse Practitioner; Visit Provider Nurse Practitioner
DX: Z12.31 Encounter for screening mammogram for malignant neoplasm of breast (principal)
CPT/HCPCS: 77063; 77067

== ENCOUNTER 2024-08-18 07:57 | Outpatient (CLI) | payer MEDICARE, SELFPAY ==
--- OUTSIDE RECORDS SUMMARY | 2024-08-18 08:03 | XMS_ITS | Clinical Summary ---
Author Organization [address] Address [address] [place] [id number] Care Team Providers Care Temporary Receptionist Name Role Phone Reese Milton DO Primary Care Provider [phone]- [phone] Allergies Active Allergy Reactions Criticality Noted Date [...] bilateral legs left greater then rt saw records management director said psoriasa and eczyma 2 Active fexofenadine (KEVIN) 180 mg tablet Take 1 tablet (180 mg total) by mouth software developer intern before breakfast Active cholecalcifero l, vitamin D3, [...] (11/22/2021): Added automatically from request for surgery [id number] Elevated vitamin B12 level 09/04/2019 Pain in [...] on file Legal Sex Female 9:44 AM POLICY ADVISOR Gender Identity Not on file Sexual Orientation Not on file Obstetrics History Para Term AB IAB SAB Ectopic Multiple Livin g Live Births 2 2 2 Date Outcome GA Total Labor Labor/2nd/3rd Weight Sex Type Anes PTL Amirah A1 A5 Name Clin Term Term Last Filed Vital Signs Vital Sign Reading Time Taken Comments Blood Pressure 132/70 03/08/2022 12:28 PM POLICY ADVISOR Pulse 76 03/08/2022 12:28 PM POLICY ADVISOR Temperature 35.7 C (96.2 F) 03/08/2022 12:28 PM POLICY ADVISOR Respiratory Rate 18 03/08/2022 12:28 PM POLICY ADVISOR Oxygen Saturation 98% 03/08/2022 12:28 PM POLICY ADVISOR Inhaled Oxygen Concentration - - Weight 88.9 kg (196 lb) 02/22/2022 4:00 PM POLICY ADVISOR Height 157.5 cm (5' 2 ) 02/22/2022 4:00 PM POLICY ADVISOR Body Mass Index 35.85 02/22/2022 4:00 PM POLICY ADVISOR Plan of Treatment Health Maintenance Due Date Last Done Comments Breast Cancer Screening-Mammogram 1954 Colon Cancer Screening-Colonoscopy 1954 Depression Screening 1954 Hepatitis C Screening 1954 Osteoporosis Screening-Bone Density Scan 1954 Hepatitis B Screening 01/27/1972 DTaP/Tdap/Td Vaccine (1 - Tdap) 02/25/2008 8, 10/26/1985 Well Visit 65+ 2019 Fall Risk Assessment 02/21/2023 02/21/2022 Covid-19 Vaccine (2023- 5 season) 2023 12/23/2020, 06/18/2020, 05/26/2020 Zoster Vaccine Completed 10/18/2017, 07/30, 01/30/2016 Pneumococcal vaccine 65+ Completed 020, 02/05/2019, 01/27/2008 Influenza Vaccine Completed 12/28/2023, , 12/23/2020, Additional history exists Medical Devices Implanted Type Area Director Of Digital Marketing Device Identifier Shelf Expiration Date Model / Serial / Lot [employer] Smartset Medium Viscosity Cement 40gm Bone Gentamicin [id number] - Sna - [id number] Implanted:Qty: 1 on 02/20/2022 by Perfecto Alexis MD at [facility] Bone Cement Right: Knee [employer] 05/30/2023 [id number] / NA / [id number] Description:Implant times ap proximate [employer] Smartset Medium Viscosity Cement 40gm Bone Sterile 3122-040 - Sna - [id number] Implanted:Qty: 1 on 02/20/2022 by Perfecto Alexis MD at [facility] Bone Cement Right: Knee [employer] 05/30/2023 3122-040 / NA / [id number] [employer] Attune Cemented Cruciate Retaining Knee Right 5 Narrow Component [id number] - Sna - [id number] Implanted:Qty: 1 on 02/20/2022 by Perfecto Alexis MD at [facility] Other - see comments Right: Knee [employer] [id number] 06/30/2031 [id number] / NA / [id number] Description:Implant pause pe rformed with each implant [employer] Insert Tibial Knee Fixed Rm Posterior Stabilized Attune 12mm Size 5 Polyethylene [id number] - Sna - [id number] Implanted:Qty: 1 on 02/20/2022 by Perfecto Alexis MD at [facility] Other - see comments Right: Knee [employer] [id number] 12/29/2028 [id number] / NA / [id number] Description:[id number] 621.00 [employer] Attune S+ Cement Fix Bearing Knee 5 Baseplate Tibial [id number] - Sna - [id number] Implanted:Qty: 1 on 02/20/2022 by Perfecto Alexis MD at [facility] Other - see comments Right: Knee [employer] [id number] 11/30/2031 [id number] / NA / [id number] Insurance [facility] MEDICARE ADVANTAGE [facility] Address: [address] [address] [place] [address] [address] [place] [id number] [facility] MEDICARE ADVANTAGE [facility] Address: [address] [address] [place] [address] [employer] MEDICARE [facility] Address: [address] [place] [address] [facility] MEDICARE ADVANTAGE [facility] Address: [address] [address] [place] [address] [facility] MEDIC[facility] Advance Directives For more information, please contact: [phone] Documents on File Type Date Recorded Patient Medical Office Coordinator Expl anation Power of Cook House Laborer 02/20/2022 12:44 PM * Full Code (Latest Code Status on File) Date Activated Date Inactivated Comments 02/20/2022 3:47 PM 02/21/2022 1:05 PM Care Teams Temporary Receptionist Relationship Specialty Start Date End Date Reese Milton DO PCP - General Internal Medicine 04/15/21
--- OUTSIDE RECORDS SUMMARY | 2024-08-18 08:03 | XMS_ITS | Referral Summary ---
Author Organization [facility] Address [facility] [place] [address] Care Team Providers Care Quiller Machine Fixer Name Role Phone Reese Milton DO Primary Care Provider +1- [phone] Allergies Active Allergy Reactions Criticality Noted Date [...] bilateral legs left greater then rt saw merchandise appraiser said psoriasa and eczyma 2 Active fexofenadine (KEVIN) 180 mg tablet Take 1 tablet (180 mg total) by mouth car unloader before breakfast Active cholecalcifero l, vitamin D3, [...] (11/22/2021): Added automatically from request for surgery [id number] Elevated vitamin B12 level 09/04/2019 Pain in [...] on file Legal Sex Female 9:44 AM PROVIDER EDUCATION SPECIALIST Gender Identity Not on file Sexual Orientation Not on file Last Filed Vital Signs Vital Sign Reading Time Taken Comments Blood Pressure 132/70 03/08/2022 12:28 PM PROVIDER EDUCATION SPECIALIST Pulse 76 03/08/2022 12:28 PM PROVIDER EDUCATION SPECIALIST Temperature 35.7 C (96.2 F) 03/08/2022 12:28 PM PROVIDER EDUCATION SPECIALIST Respiratory Rate 18 03/08/2022 12:28 PM PROVIDER EDUCATION SPECIALIST Oxygen Saturation 98% 03/08/2022 12:28 PM PROVIDER EDUCATION SPECIALIST Inhaled Oxygen Concentration - - Weight 88.9 kg (196 lb) 02/22/2022 4:00 PM PROVIDER EDUCATION SPECIALIST Height 157.5 cm (5' 2 ) 02/22/2022 4:00 PM PROVIDER EDUCATION SPECIALIST Body Mass Index 35.85 02/22/2022 4:00 PM PROVIDER EDUCATION SPECIALIST Plan of Treatment Not on file Medical Devices Implanted Type Area Medical Device Engineer Device Identifier Shelf Expiration Date Model / Serial / Lot [employer] Smartset Medium Viscosity Cement 40gm Bone Gentamicin [id number] - Sna - [id number] Implanted:Qty: 1 on 02/20/2022 by Perfecto Alexis MD at [facility] Bone Cement Right: Knee [employer] 05/30/2023 [id number] / NA / [id number] Description:Implant times ap proximate [employer] Smartset Medium Viscosity Cement 40gm Bone Sterile 3122-040 - Sna - [id number] Implanted:Qty: 1 on 02/20/2022 by Perfecto Alexis MD at [facility] Bone Cement Right: Knee [employer] 05/30/2023 3122-040 / NA / [id number] [employer] Attune Cemented Cruciate Retaining Knee Right 5 Narrow Component [id number] - Sna - [id number] Implanted:Qty: 1 on 02/20/2022 by Perfecto Alexis MD at [facility] Other - see comments Right: Knee [employer] [id number] 06/30/2031 [id number] / NA / [id number] Description:Implant pause pe rformed with each implant [employer] Insert Tibial Knee Fixed Rm Posterior Stabilized Attune 12mm Size 5 Polyethylene [id number] - Sna - [id number] Implanted:Qty: 1 on 02/20/2022 by Perfecto Alexis MD at [facility] Other - see comments Right: Knee [employer] [id number] 12/29/2028 [id number] / NA / [id number] Description:[id number] 621.00 [employer] Attune S+ Cement Fix Bearing Knee 5 Baseplate Tibial [id number] - Sna - [id number] Implanted:Qty: 1 on 02/20/2022 by Perfecto Alexis MD at [facility] Other - see comments Right: Knee [employer] [id number] 11/30/2031 [id number] / NA / [id number] Insurance [facility] MEDICARE ADVANTAGE [place] [id number] MEDICARE [employer] MEDICARE ADVANTAGE [employer] MEDICARE Advance Directives For more information, please contact: [phone] Documents on File Type Date Recorded Patient Cattle Broker Expl anation Power of Sash Repairer 02/20/2022 12:44 PM * Full Code (Latest Code Status on File) Date Activated Date Inactivated Comments 02/20/2022 3:47 PM 02/21/2022 1:05 PM Care Teams Quiller Machine Fixer Relationship Specialty Start Date End Date Reese Milton DO PCP - General Internal Medicine 04/15/21
--- OUTSIDE RECORDS SUMMARY | 2024-08-18 08:03 | XMS_ITS | Clinical Summary ---
Author Organization [facility] Address [address] [place] [address] Care Team Providers Care Director Child Abuse Therapy Name Role Phone Unknown, Provider Primary Care Provider Unavaila ble Source Comments [facility],non-owned Affiliates and Associated Physician Practices is amultiple site organization consisting of ambulatory clinics and hospital sitesin [place], [place], [place] and [place]. This disclosure is being madepursuant to the Care Everywhere program and may not contain all information available regarding this patient. Last updated 17.[facility] Allergies Active Allergy Reactions Criticality Noted Date Comments Codeine Headache,Nausea and/or Vomiting 06/2012 Nalbuphine Other High 04/04/2012 Sulfa Drugs Headache 04/04/2012 Medications * Be aware that medications may not be up to date on this document. Alwaysverify current medications with the patient. atenolol (TENORMIN) 25 MG tablet Take 25 [...] fluticasone propionate (FLONASE) 50 MCG/ACT nasal spray Bath 2 Sprays into each nostril daily. 16 g 0 07/21/2010 Active DULoxetine HCl (CYMBALTA PO) Active Active Problems No known active problems Social History Tobacco Use Types Packs/Day Years Used Date Smoking Tobacco: Never Alcohol Use Standard Drinks/Week Comments Yes 0 (1 standard drink = 0.6 oz pur e alcohol) occ Comments Unknown Sex and Gender Information Value Date Recorded Sex Assigned at Not on file Legal Sex Female 11:39 AM TRACK GRINDER OPERATOR Gender Identity Not on file Sexual Orientation [...] VACCINE (3 - season) 2023 06/18/2020, 05/26/2020 DEPRESSION SCREENING 04/01/2024 MEDICARE AWV CALENDAR YEAR 2024 INFLUENZA VACCINE (Season Ended) 2024 01/01/2020, 01/13/2019, 01/15/2018, Additional history exists Respiratory Syncytial Virus (RSV) Vaccine Pt: or [...] complete this topic MENINGOCOCCAL (Group B) VACCINE SHARED DECISION-MAKING Aged Out No longer eligible based on patient's age to complete this topic MENINGOCOCCAL GROUPS A/C/Y/W VACCINE Aged Out No longer eligible based on patient's age to complete this topic Insurance [facility] MANAGED MEDICARE ADV [employer] MEDICARE ADV SELF PAY NO INSURANCE Member Subscriber Plan / Payer (Ef fective for All Dates) Name:Celsa Liu Member ID:Not on file Relation to Subscriber:Not on file Name:CELSA LIU Subscriber ID:Not on file (Home) Address: [address] [place] [address] Payer ID:Not on file Group ID:Not on file Type:Self Pay Address: [place], [place] Care Teams Director Child Abuse Therapy Relationship Specialty Start Date End Date Unknown, Provider PCP - General 11/05/20
--- OUTSIDE RECORDS SUMMARY | 2024-08-18 08:03 | XMS_ITS | Clinical Summary ---
Author Organization [facility] Address [address] Attn: Epic Prelude ADT [place] [id number] Care Team Providers Care Mine Wirer Name Role Phone Unavailable Primary Care Provider [...] Colonography Q 5 years 1999 PNEUMOCOCCAL VACCINE 50+ YEA RS (1 of 1 - PCV) 01/27/2004 OSTEOPOROSIS SCREENING 2019 INFLUENZA VACCINE (#1) 2023 12/16/2021 RSV VACCINE (60+ or ) (1 - 1-dose 75+ series) 2029 ZOSTER VACCINE Completed 07/29/2023, 04/02/2023 Insurance RX AETNA Medicare Part D
[2024-08-18 13:24] LABS: Basophils Percent Auto 0.4 % (0.2-1.2); Eosinophils Absolute Auto 0.2 K/mm3 (0-0.3); Eosinophils Percent Auto 2.4 % (0-4.4); Hematocrit 45.7 % (37.0-47.0); Hemoglobin 15.2 g/dL (12.0-15.0); Immature Granulocyte Absolute 0.05 K/mm3 (0.00-0.031); Immature Granulocyte Percent A 0.5 % (0-0.5); Lymphocytes Absolute Auto 1.91 K/mm3 (0.9-3.2); Lymphocytes Percent Auto 19.6 % (18.3-44.2); Mean Corpuscular HGB Conc 33.3 g/dl (32-36); Mean Corpuscular Volume 93.1 fl (80-100); Mean Platelet Volume 9.4 fl (7.4-10.4); Monocytes Percent Auto 9.7 % (2.6-8.5); Neutrophils Absolute Auto 6.6 K/mm3 (1.3-6.7); Neutrophils Percent Auto 67.4 % (45.5-73.1); Platelet Count Result 224 k/mm3 (150-375); Red Blood Count 4.91 M/mm3 (4.2-5.4); White Blood Count 9.8 K/mm3 (4.5-10.0)
[2024-08-18 13:35] LABS: Alanine Aminotransferase 86 U/L (6-35); Albumin Level 4.8 g/dL (3.5-5.1); Alkaline Phosphatase 123 U/L (38-126); Anion Gap 10 mmol/L (4-12); Aspartate Amino Transferase 87 U/L (14-36); Bilirubin,Total 0.9 mg/dL (0.2-1.3); Blood Urea Nitrogen 15 mg/dL (7-17); Calcium 9.4 mg/dL (8.4-10.2); Carbon Dioxide 28 mmol/L (22-30); Chloride 100 mmol/L (98-107); Cholesterol 190 mg/dL (0-200); Estimated Glomerular Filt Rate > 60; Glucose 142 mg/dL (65-110); HDL Direct 55 mg/dL; Potassium 4.2 mmol/L (3.4-5.0); Sodium 138 mmol/L (137-145); Triglycerides 101 mg/dL (<150)
[2024-08-18 13:48] LABS: LDL Cholesterol Direct 97 mg/dL
[2024-08-18 14:35] LABS: Hemoglobin A1C 6.1 % (<5.7)
== END 2024-08-18 07:58 | disposition home or self-care (01) ==
LOC: ANHGOSHLAB 07:58
PROVIDERS: PCP Nurse Practitioner; Visit Provider Nurse Practitioner
DX: R74.01 Elevation of levels of liver transaminase levels (principal); R73.03 Prediabetes; Z13.29 Encounter for screening for other suspected endocrine disorder; E78.00 Pure hypercholesterolemia, unspecified
CPT/HCPCS: 36415; 80053; 80061; 83036; 85025

== ENCOUNTER 2025-01-27 09:04 | Emergency (ER) | payer MEDICARE, SELFPAY ==
--- NOTE | 2025-01-27 09:17 | ED.GENADULT ---
HPI - General Adult General Chief complaint: Nausea/Vomiting/Diarrhea Stated complaint: Vomiting Time Seen by Provider: 01/27/25 09:18 Source: patient Mode of arrival: ambulatory Limitations: no limitations History of Present Illness HPI narrative: 70-year-old female presents with complaint of sinus congestion, sinus pressure, postnasal drainage 8 days. Afebrile. Patient reports yesterday she experienced sinus headache causing nausea and vomiting. Takes Joy and Nasacort daily. Afebrile. Reports recent travel to [place], wants to rule out COVID. No chest pain or shortness of breath. All systems reviewed and negative except as noted above. Related Data Home Medications ?Medication ?Instructions ?Recorded ?Confirmed ?Last Taken ?Type aspirin 81 mg tablet,delayed 81 mg PO DAILY 11/10/19 09/29/24 05/18/24 History release (Ecotrin Low Strength) coenzyme Q10 100 mg capsule 200 mg PO DAILY 11/10/19 09/29/24 05/20/24 History (CoQ-10) cranberry extract 200 mg capsule 200 mg PO DAILY 11/10/19 09/29/24 05/20/24 History lactobacillus combination no.8 3 3,000 mmu cells PO DAILY 12/15/19 09/29/24 05/20/24 History billion cell capsule (Adult Probiotic) omega-3 fatty acids 1,000 mg 1,000 mg PO DAILY 12/15/19 09/29/24 05/20/24 History capsule (Fish Oil Concentrate) cyclosporine 0.05 % eye drops in a 1 drp EACH EYE Q12H 01/12/22 09/29/24 05/21/24 History dropperette (Restasis) clobetasol 0.05 % topical cream 1 applic topical DAILY 03/02/24 09/29/24 05/20/24 History fexofenadine 60 mg tablet (Joy 60 mg PO DAILY 03/02/24 09/29/24 05/20/24 History Allergy) [id number] 8 mg-folic 400 0.5 tablet PO DAILY 03/02/24 09/29/24 05/17/24 History mcg-K 50 mcg-lutein 300 mcg tablet (Centrum Silver Women) cholecalciferol (vitamin D3) PO 09/29/24 09/29/24 Unknown History cyanocobalamin (vitamin B-12) 100 mcg subcut DAILY 09/29/24 09/29/24 Unknown History 1,000 mcg/mL injection solution semaglutide 0.25 mg/0.05 mL mg subcut 09/29/24 09/29/24 Unknown History subcutaneous syringe Allergies Allergy/AdvReac Type Severity Reaction Status Date / Time nalbuphine Allergy Unknown LOWERS B/P Verified 09/29/24 11:44 midazolam (From Versed) AdvReac Severe Vomiting Verified 09/29/24 11:44 Sulfa (Sulfonamide AdvReac Unknown MIGRAINES, Verified 09/29/24 11:44 Antibiotics) VOMITING codeine AdvReac Vomiting Verified 09/29/24 11:44 [facility] Past Medical History Medical History (Updated 01/27/25 @ 09:36 by Michell Moreno APRN) Hiatal hernia Colon polyps Obesity Degenerative joint disease of knee Right knee DJD Right knee pain Vitamin D deficiency Screening for endocrine disorder Screening for breast cancer Establishing care with new doctor, encounter for High cholesterol HTN (hypertension) GERD (gastroesophageal reflux disease) Anxiety Surgical History Surgical History (Updated 09/29/24 @ 11:44 by Delmi Garay CMA) History of cataract surgery History of total right knee replacement (TKR) History of dental surgery Lower right dental implant History of hysterectomy 1992 H/O section 1984 History of tonsillectomy Family History Family History Mother Heart disease Diabetes mellitus Father Aortic aneurysm Grandparent Uremia Cerebrovascular accident Emphysema of lung Sibling Leukemia Social History Social History Social History: Caffeine-Coffee 2 cups daily Smoking status: Never smoker Alcohol intake: current Drinks per week: 2 Alcohol use details: Occasionally Substance use: never Substance use type: does not use Lack of Transportation: No Lack of Food: Never True Current Housing: I Have Housing Concerned About Future Housing: No Difficulty Paying Gas/Electric Bills: No Difficulty Paying for Meds: No Currently Unemployed: No Education: Master's Degree or Higher Difficulty w/ Childcare or Family Care: No Living arrangements: alone Spiritual care concerns: No Comments At time of signature, agree with nursing past medical, surgical, social and family history. There is no relevant family history pertinent to the presenting complaint. Exam Narrative: GENERAL: This is a well-nourished, well-developed patient, in no apparent distress. HEAD: normocephalic, atraumatic. EYES: PERRL. Sclera clear/white. Vision is grossly intact. EARS: External ears normal, auditory canals clear and without drainage, TMs normal without perforation. Hearing grossly intact. NOSE: External nose normal with purulent nasal drainage, erythema swelling to bilateral nares, bilateral maxillary sinus tenderness on palpation THROAT: Mucous membranes moist, mild erythema postnasal drainage. No swelling or exudates NECK: Neck supple, non-tender without lymphadenopathy, masses or thyromegaly. CARDIOVASCULAR: Regular rate and rhythm without murmurs, gallops, or rubs. RESPIRATORY: Clear to auscultation. Breath sounds equal bilaterally. No wheezes, rales, or rhonchi. SKIN: warm, Dry, intact with no suspicious lesions or rash, good texture and turgor. NEURO: awake, alert, and oriented to person, place and time. There were no obvious focal neurologic abnormalities. EXTREMITIES: No joint tenderness, effusion, or edema noted. Course Course Level of Care: Express Care Visit Vital Signs Vital signs: Vital Signs Temperature 36.1 C L 01/27/25 09:19 Pulse Rate 79 01/27/25 09:19 Respiratory Rate 16 01/27/25 09:19 Blood Pressure 144/84 H 01/27/25 09:19 Pulse Oximetry 100 01/27/25 09:19 Temperature 36.1 C L 01/27/25 09:19 Pulse Rate 79 01/27/25 09:19 Respiratory Rate 16 01/27/25 09:19 Blood Pressure 144/84 H 01/27/25 09:19 Pulse Oximetry 100 01/27/25 09:19 The reviewed Medical Decision Making MDM Narrative Medical decision making narrative: Will treat for bacterial sinusitis due to duration of symptoms and exam findings. Patient is alert, nontoxic. Negative COVID test. Vital Signs Vital Signs: Vital Signs Temperature 36.1 C L 01/27/25 09:19 Pulse Rate 79 01/27/25 09:19 Respiratory Rate 16 01/27/25 09:19 Blood Pressure 144/84 H 01/27/25 09:19 Pulse Oximetry 100 01/27/25 09:19 Temperature 36.1 C L 01/27/25 09:19 Pulse Rate 79 01/27/25 09:19 Respiratory Rate 16 01/27/25 09:19 Blood Pressure 144/84 H 01/27/25 09:19 Pulse Oximetry 100 01/27/25 09:19 Lab Data Labs: Lab Results 01/27/25 Range/Units 09:35 POC SARS CoV-2 Ag Negative (Negative) Discharge Plan Discharge Clinical Impression: Acute bacterial sinusitis, Sinus headache Patient Disposition: Home Condition: Stable Instructions: Sinusitis (ED) Additional Instructions: Your COVID and influenza test was negative today. Take medications as prescribed. Continue fyko-jod-wywzmbs Joy and Nasacort as directed on packaging. Drink at least 64 oz of water a day. See your primary care physician if symptoms are not improving. Patient Language: Lao Prescriptions: New amoxicillin-pot clavulanate 875-125 mg tablet 1 tablet PO Q12H 7 Days Qty: 14 0RF pseudoephedrine HCl 60 mg tablet 60 mg PO Q4-6H PRN (Reason: nasal congestion) Qty: 20 0RF Rx Instructions: DNExceed 4 doses/24h No Action omega-3 fatty acids [Fish Oil Concentrate] 1,000 mg capsule 1,000 mg PO DAILY Adult Probiotic 3 billion cell capsule 3,000 mmu cells PO DAILY Rx Instructions: administer with a meal duloxetine [Cymbalta] 20 mg capsule,delayed release(DR/EC) 20 mg PO DAILY Qty: 90 3RF fexofenadine [Joy Allergy] 60 mg tablet 60 mg PO DAILY Centrum Silver Women 8 mg iron-400 mcg-50 mcg tablet 0.5 tablet PO DAILY clobetasol 0.05 % cream 1 applic topical DAILY semaglutide 0.25 mg/0.05 mL syringe subcut cyanocobalamin (vitamin B-12) 1,000 mcg/mL solution 100 mcg subcut DAILY cholecalciferol (vitamin D3) PO aspirin [Ecotrin Low Strength] 81 mg tablet,delayed release (DR/EC) 81 mg PO DAILY cranberry extract 200 mg capsule 200 mg PO DAILY Rx Instructions: administer with a meal coenzyme Q10 [CoQ-10] 100 mg capsule 200 mg PO DAILY cyclosporine [Restasis] 0.05 % dropperette 1 drp EACH EYE Q12H omeprazole 40 mg capsule,delayed release(DR/EC) See Rx Instructions .ROUTE .COMPLEX Qty: 90 3RF Dose Instruction: TAKE 1 CAPSULE BY MOUTH DAILY Rx Instructions: TAKE 1 CAPSULE BY MOUTH DAILY atorvastatin 10 mg tablet See Rx Instructions .ROUTE .COMPLEX Qty: 90 1RF Dose Instruction: TAKE 1 TABLET BY MOUTH DAILY Rx Instructions: TAKE 1 TABLET BY MOUTH DAILY lisinopril 10 mg tablet See Rx Instructions .ROUTE .COMPLEX Qty: 90 1RF Dose Instruction: TAKE 1 TABLET BY MOUTH DAILY Rx Instructions: TAKE 1 TABLET BY MOUTH DAILY Follow-up/Referrals: Reese Milton DO [Primary Care Provider, Internal Medicine] Time of Disposition: 09:37
[2025-01-27 09:19] VITALS: BP 144/84; PULSE 79; RESP 16; TEMP 36.1; O2SAT 100
[2025-01-27 09:36] LABS: EDCOVIDSCREEN Negative (Negative)
== END 2025-01-27 09:46 | disposition home or self-care (01) ==
PROVIDERS: Emergency Provider Nurse Practitioner Family; PCP Internal Medicine
DX: J01.90 Acute sinusitis, unspecified (principal); R51.9 Headache, unspecified; Z20.822 Contact with and (suspected) exposure to COVID-19; I10 Essential (primary) hypertension; K21.9 Gastro-esophageal reflux disease without esophagitis; E78.00 Pure hypercholesterolemia, unspecified; E66.9 Obesity, unspecified; Z68.30 Body mass index [BMI] 30.0-30.9, adult; M17.11 Unilateral primary osteoarthritis, right knee; E55.9 Vitamin D deficiency, unspecified; Z96.651 Presence of right artificial knee joint; Z79.82 Long term (current) use of aspirin
CPT/HCPCS: 87426; 99213; G0463

== ENCOUNTER 2025-03-09 08:01 | Outpatient (CLI) | payer MEDICARE, SELFPAY ==
[2025-03-09 12:59] LABS: Hematocrit 42.4 % (37.0-47.0); Hemoglobin 14.2 g/dL (12.0-15.0); Immature Granulocyte Percent A 0.3 % (0-0.5); Lymphocytes Absolute Auto 2.97 K/mm3 (0.9-3.2); Mean Corpuscular HGB Conc 33.5 g/dl (32-36); Mean Corpuscular Hemoglobin 31.0 pg (26-34); Mean Corpuscular Volume 92.6 fl (80-100); Nucleated Red Blood Cells Absolute Auto 0.000 K/mm3 (0.0-0.012); Nucleated Red Blood Cells Perc 0.0 % (0.0-0.2); Platelet Count Result 194 k/mm3 (150-375); Red Blood Count 4.58 M/mm3 (4.2-5.4); White Blood Count 6.7 K/mm3 (4.5-10.0)
[2025-03-09 13:05] LABS: Alanine Aminotransferase 53 U/L (6-35); Albumin Level 4.5 g/dL (3.5-5.1); Alkaline Phosphatase 77 U/L (38-126); Anion Gap 6 mmol/L (4-12); Aspartate Amino Transferase 69 U/L (14-36); Bilirubin,Total 0.8 mg/dL (0.2-1.3); Blood Urea Nitrogen 10 mg/dL (7-17); Calcium 9.6 mg/dL (8.4-10.2); Carbon Dioxide 27 mmol/L (22-30); Chloride 102 mmol/L (98-107); Cholesterol 173 mg/dL (0-200); Estimated Glomerular Filt Rate > 60; Glucose 93 mg/dL (65-110); HDL Direct 49 mg/dL; Potassium 3.9 mmol/L (3.4-5.0); Sodium 135 mmol/L (137-145); Total Protein 7.8 g/dL (6.3-8.2); Triglycerides 117 mg/dL (<150)
[2025-03-09 17:52] LABS: Hemoglobin A1C 5.7 % (<5.7)
== END 2025-03-09 08:02 | disposition home or self-care (01) ==
LOC: ANHGOSHLAB 08:02
PROVIDERS: PCP Internal Medicine; Visit Provider Nurse Practitioner
DX: R73.03 Prediabetes (principal); E55.9 Vitamin D deficiency, unspecified; Z13.29 Encounter for screening for other suspected endocrine disorder; R74.01 Elevation of levels of liver transaminase levels
CPT/HCPCS: 36415; 80053; 80061; 82306; 83036; 85025